=== PATIENT | male | born 1945 | race Two or more races ===

== ENCOUNTER 2016-12-13 13:15 | Inpatient (IN) | payer MEDICARE ==
[~2016-12-13] VITALS: Ht 175.3 cm; Wt 89.6 kg
[2016-12-13 15:05] LABS: INR 0.9 (0.8-1.1); PROTHROMBIN TIME PATIENT 11.8 SEC (11.7-14.0)
[2016-12-13 15:10] LABS: CALCIUM 8.9 mg/dL (8.5-10.1); GFR 74.1; POTASSIUM 3.5 mmol/L (3.5-5.1)
[2016-12-13] MEDS ORDERED: IOHEXOL 300 MG/ML 75 ML VIAL IV ONE (15:15)
[2016-12-13] MEDS ORDERED: CONTRAST GIVEN MC PRN (15:15)
[2016-12-13 15:23] LABS: BASO # 0.1 x10^3/uL (0.0-0.2); BASO % 1 % (0-3); EOS % 0 % (0-3); HEMATOCRIT 40.4 % (39.0-53.0); HEMOGLOBIN 14.1 g/dL (13.0-17.5); LYMPH # 4.2 x10^3/uL (1.0-4.8); LYMPH % 47 % (24-48); MEAN CORPUSCULAR HEMOGLOBIN 31 pg (25-35); MEAN CORPUSCULAR HGB CONC 35 g/dL (31-37); MEAN CORPUSCULAR VOLUME 90 fL (79-100); MONO % 11 % (0-9); NEUT % 40 % (31-73); PLATELET COUNT 251 x10^3/uL (140-400); RED CELL DISTRIBUTION WIDTH 16.7 % (11.5-14.5); WHITE BLOOD COUNT 8.9 x10^3/uL (4.0-11.0)
[2016-12-13 15:25] LABS: ALBUMIN 2.8 g/dL (3.4-5.0); DIRECT BILIRUBIN 14.5 mg/dL (0.0-0.2); TOTAL BILIRUBIN 21.1 mg/dL (0.2-1.0); TOTAL PROTEIN 7.2 g/dL (6.4-8.2)
[2016-12-13 15:31] LABS: BILIRUBIN,URINE LARGE (NEG); GLUCOSE,URINE NEGATIVE (NEG); PROTEIN,URINE NEGATIVE (NEG-TRACE)
[2016-12-13 15:42] LABS: BACTERIA,URINE 0 /HPF (0-FEW); NITRITE,URINE NEGATIVE (NEG); RBC,URINE 0 /HPF (0-2); SQUAMOUS EPITHELIAL CELL,UR FEW /LPF; UROBILINOGEN,URINE 0.2 mg/dL (0.2 mg/dL); WBC,URINE OCC /HPF (0-4)
--- NOTE | 2016-12-13 16:12 | RAD ---
Indication painless Jason disc. Axial images through the abdomen and pelvis were obtained. Approximately 75 cc of Omnipaque 300 was administered intravenously. No prior CT imaging of the abdomen or pelvis is available. There is a 8 to 9 mm pulmonary nodule in the right lower lobe. The etiology is unclear. An acute finding at either lung base is not seen. There is a moderately large hiatus hernia. There is intrahepatic biliary ductal dilatation. There is a possible mass in the right lobe of the liver in the area of the clifford habitus. There is probable cholelithiasis. Mild gallbladder wall thickening is suspect. If gallbladder pathology is suspect ultrasound should be considered. No pancreatic abnormality is seen. There are, however, borderline retroperitoneal lymph nodes. A few lymph nodes are also seen in the mesentery herniated into the chest. The pancreas appears unremarkable. No adrenal anomalies are seen and the kidneys appear unremarkable. An acute finding in the abdomen is not seen. No acute finding is seen in the pelvis. IMPRESSION: Intrahepatic biliary ductal dilatation the etiology of which is uncertain. There is a possible hepatic mass in the area of the clifford hepatis. There is some borderline retroperitoneal adenopathy in the upper abdomen. 8 to 9 mm pulmonary nodule in the right lower lobe
[2016-12-13 16:50] LABS: PLT ESTIMATE ADEQUATE (ADEQUATE)
--- NOTE | 2016-12-13 17:31 | RAD ---
Right upper quadrant abdominal ultrasound, 12/13/2016: History: Painless jaundice The gallbladder is within normal limits in size. Its ordaz are markedly thickened. No definite gallstones are seen. There are dilated intrahepatic bile ducts, best seen in the right lobe of the liver. There is an irregular mass in the right lobe of the liver adjacent to the gallbladder fossa corresponding to an abnormality seen on the current CT study. This mass is predominantly hyperechoic and heterogeneous. It measures approximately 4 cm in greatest diameter. It is presumably the source of the biliary ductal dilatation. A portion of the common hepatic duct was visualized and it measures 7 mm. The pancreas was obscured by overlying bowel. The visualized portions of the right kidney are unremarkable. IMPRESSION: 1. Heterogeneous mass in the right lobe of the liver with associated intrahepatic bile duct dilatation. Malignancy such as cholangiocarcinoma, hepatoma or metastatic disease is suspected. 2. Heterogeneous gallbladder wall thickening which can be due to a variety of causes including cholecystitis, liver disease or hypoproteinemia.
--- NOTE | 2016-12-13 17:59 | PHYS DOC ---
Past Medical History Past Medical History: High Cholesterol, Other Additional Past Medical Histor: DEMENTIA,ULCERATIVE COLITIS Past Surgical History: Other Additional Past Surgical Histo: SHOULDER Alcohol Use: Sober Drug Use: None Adult General Chief Complaint Chief Complaint: DIARRHEA HPI HPI Patient is a 71 year old male who presents at request of PCP for hyperbilirubinemia. He and note one episode of loose stool per day for the past 3 days. They note 2 weeks of gradually worsening yellowing of the skin and eyes. He denies abdominal pain, nausea or vomiting, fever or chills, dysuria, hematuria, chest pain, dyspnea, night sweats, weight loss, abdominal swelling. Review of Systems Review of Systems Constitutional: Denies fever or chills [] Eyes: Denies change in visual acuity, redness, or eye pain [] HENT: Denies nasal congestion or sore throat [] Respiratory: Denies cough or shortness of breath [] Cardiovascular: No additional information not addressed in HPI [] GI: Denies abdominal pain, nausea, vomiting, bloody stools [] : Denies dysuria or hematuria [] Musculoskeletal: Denies back pain or joint pain [] Integument: Denies rash or skin lesions [] Neurologic: Denies headache, focal weakness or sensory changes [] Endocrine: Denies polyuria or polydipsia [] Current Medications Current Medications Current Medications Medications (Trade) Dose Ordered Sig/Pino Start Time Stop Time Status Last Admin Dose Admin Info (Do NOT chart on this entry -- for MONITORING) 1 each PRN DAILY PRN 12/13/16 15:15 12/15/16 15:14 Iohexol (Omnipaque 300 Mg/ml) 60 ml 1X ONCE 12/13/16 15:15 12/13/16 15:16 DC 12/13/16 15:35 75 ML Allergies Allergies Allergies Coded Allergies Type Severity Reaction Last Updated Verified No Known Drug Allergies 12/13/16 No Physical Exam Physical Exam Constitutional: Well developed, well nourished, no acute distress, non-toxic appearance. [] HENT: Normocephalic, atraumatic, bilateral external ears normal, oropharynx moist, no oral exudates, nose normal. [] Eyes: PERRLA, EOMI. Yellow Sclera [] Neck: Normal range of motion, supple. [] Cardiovascular:Heart rate regular rhythm [] Lungs & Thorax: Bilateral breath sounds clear to auscultation [] Abdomen: Bowel sounds normal, soft, no tenderness. [] Skin: Warm, dry, no erythema, no rash. Jaundiced [] Back: No tenderness, no CVA tenderness. [] Extremities: ROM intact, no edema. [] Neurologic: Alert and oriented X 3, normal motor function, normal sensory function, no focal deficits noted. [] Psychologic: Affect normal, judgement normal, mood normal. [] Current Patient Data Vital Signs Vital Signs Date Time Temp Pulse Resp B/P Pulse Ox O2 Delivery O2 Flow Rate FiO2 12/13/16 18:00 60 50 119/68 96 Room Air 12/13/16 13:45 98 98.0 Lab Values Laboratory Tests Test 12/13/16 14:30 12/13/16 14:40 12/13/16 15:05 Urine Collection Type Clean catch Urine Color Fanny Urine Clarity Clear Urine pH 6.0 Urine Specific [place] >=1.030 Urine Protein Negativemg/dL (NEG-TRACE) Urine Glucose (UA) Negativemg/dL (NEG) Urine Ketones (Stick) Negativemg/dL (NEG) Urine Blood Negative (NEG) Urine Nitrite Negative (NEG) Urine Bilirubin Large (NEG) Urine Urobilinogen Dipstick 0.2mg/dL (0.2 mg/dL) Urine Leukocyte Esterase Negative (NEG) Urine RBC 0/HPF (0-2) Urine WBC Occ/HPF (0-4) Urine Squamous Epithelial Cells Few/LPF Urine Bacteria 0/HPF (0-FEW) Urine Mucus Marked/LPF Prothrombin Time 11.8SEC (11.7-14.0) Prothrombin Time INR 0.9 (0.8-1.1) PTT 30SEC (24-38) Sodium Level 138mmol/L (136-145) Potassium Level 3.5mmol/L (3.5-5.1) Chloride Level 102mmol/L (98-107) Carbon Dioxide Level 24mmol/L (21-32) Anion Gap 12 (6-14) Blood Urea Nitrogen 18mg/dL (8-26) Creatinine 1.0mg/dL (0.7-1.3) Estimated GFR (Cockcroft-Gault) 74.1 Glucose Level 94mg/dL (70-99) Calcium Level 8.9mg/dL (8.5-10.1) Total Bilirubin 21.1mg/dL (0.2-1.0) H Direct Bilirubin 14.5mg/dL (0.0-0.2) H Aspartate Amino Transferase (AST) 66U/L (15-37) H Alanine Aminotransferase (ALT) 75U/L (16-63) H Alkaline Phosphatase 264U/L (46-116) H Total Protein 7.2g/dL (6.4-8.2) Albumin 2.8g/dL (3.4-5.0) L Lipase 269U/L (73-393) White Blood Count 8.9x10^3/uL (4.0-11.0) Red Blood Count 4.50x10^6/uL (4.30-5.70) Hemoglobin 14.1g/dL (13.0-17.5) Hematocrit 40.4% (39.0-53.0) Mean Corpuscular Volume 90fL (79-100) Mean Corpuscular Hemoglobin 31pg (25-35) Mean Corpuscular Hemoglobin Concent 35g/dL (31-37) Red Cell Distribution Width 16.7% (11.5-14.5) H Platelet Count 251x10^3/uL (140-400) Neutrophils (%) (Auto) 40% (31-73) Lymphocytes (%) (Auto) 47% (24-48) Monocytes (%) (Auto) 11% (0-9) H Eosinophils (%) (Auto) 0% (0-3) Basophils (%) (Auto) 1% (0-3) Neutrophils # (Auto) 3.6x10^3uL (1.8-7.7) Lymphocytes # (Auto) 4.2x10^3/uL (1.0-4.8) Monocytes # (Auto) 1.0x10^3/uL (0.0-1.1) Eosinophils # (Auto) 0.0x10^3/uL (0.0-0.7) Basophils # (Auto) 0.1x10^3/uL (0.0-0.2) Segmented Neutrophils % 65% (35-66) Lymphocytes % 23% (24-48) L Monocytes % 12% (0-10) H Platelet Estimate Adequate (ADEQUATE) Laboratory Tests 12/13/16 15:05 Laboratory Tests 12/13/16 14:40 Radiology/Procedures Radiology/Procedures CT abdomen and pelvis with IV contrast IMPRESSION: Intrahepatic biliary ductal dilatation the etiology of which is uncertain. There is a possible hepatic mass in the area of the clifford hepatis. There is some borderline retroperitoneal adenopathy in the upper abdomen. 8 to 9 mm pulmonary nodule in the right lower lobe DICTATED and SIGNED BY: MIHAI MOSER MD DATE: 12/13/16 1555 Ultrasound abdomen IMPRESSION: 1. Heterogeneous mass in the right lobe of the liver with associated intrahepatic bile duct dilatation. Malignancy such as cholangiocarcinoma, hepatoma or metastatic disease is suspected. 2. Heterogeneous gallbladder wall thickening which can be due to a variety of causes including cholecystitis, liver disease or hypoproteinemia. DICTATED and SIGNED BY: TESS MALIK MD DATE: 12/13/16 1721 Course & Med Decision Making Course & Med Decision Making Pertinent Labs and Imaging studies reviewed. (See chart for details) Imaging concerning for hepatobiliary cancer with metastasis. Bilirubin remains elevated. Discussed case with Dr. Lobo, cone machine feeder for Dr. Luciano, who recommends admission for GI evaluation. Discussed case with Dr. Pelaez, GI, who will see him. Dragon Disclaimer Dragon Disclaimer This electronic medical record was generated, in whole or in part, using a voice recognition dictation system. Departure Departure Impression: Primary Impression: Jaundice Additional Impression: Liver tumor Disposition: ADMITTED INPATIENT Condition: STABLE Referrals: AKUA LUCIANO (PCP) Problem Qualifiers Giulia KENNEDY MD Dec 13, 2016 17:59
[2016-12-13] MEDS ORDERED: ACETAMINOPHEN 325 MG TABLET. PO PRN (18:30)
[2016-12-13] MEDS ORDERED: ONDANSETRON PF 4 MG/2 ML VIAL. IV PRN (18:30)
[2016-12-13] MEDS ORDERED: FENTANYL PF 100 MCG/2 ML VIAL. IV PRN (18:30)
[2016-12-13] MEDS ORDERED: FENO48TA2 PO (20:35)
[2016-12-13] MEDS ORDERED: PROM5SYR2 PO (20:35)
[2016-12-13] MEDS ORDERED: MESA0.37 PO (20:35)
[2016-12-13] MEDS ORDERED: ASPI81TA2 PO (20:35)
[2016-12-13] MEDS ORDERED: OMEP20CA9 PO (20:35)
[2016-12-13] MEDS ORDERED: AZIT250T6 PO (20:35)
[2016-12-13 20:54] VITALS: BP 131/78
[2016-12-13 23:36] VITALS: BP 120/64
[2016-12-14 03:09] VITALS: BP 134/71
[2016-12-14] MEDS ORDERED: PROMETH/CODEINE 6.25/10MG 5 ML SYRUP. PO PRN (06:00)
--- NOTE | 2016-12-14 06:13 | PDOC1 ---
AGUILAREricJUAN PABLO MARINELLI DRAIN TILE PRESS OPERATOR 12/14/16 0613: HISTORY AND PHYSICAL Chief Complaint Chief Complaint This 71 year old [place] male has been admitted with a chief complaint of elevated liver enzymes. He was seen by Dr. Hernandez on 12/12/16 and treatment initiated for acute bronchitis with productive cough yellow sputum for 2 weeks. Labs were drawn and he was noted to have elevated LFTs: AP 229, ALT 77, ADST71, T Bili 23.3. He was instructed to proceed to the ED. A CT of the abdomen/pelvis with IV/oral contrast revealed: 8-9mm pulmonary nodule RLL, large HH, and possible mass in the right lobe of the liver. An US of the GB/liver: intrahepatic duct dilation with +mass right lobe of the liver. He is admitted for further evaluation and treatment. Problem List Problems Medical Problems: (1) Jaundice Status: Acute (2) Liver tumor Status: Acute Past Medical History Cardiovascular: HTN CENTRAL NERVOUS SYSTEM: Other (early Alzheimer ) GI: GERD, Other (h/o ulcerative colitis, irritable bowel disease) Endocrine: Diabetes (no insulin ), Other (obesitym metabolic syndrome X ) Past Surgical History PSH None Past Family History PFH Father - liver problems Past Social History PSH , no h/o tobacco, ETOH, or illicit drugs Review of Symptoms Review of Symptoms A 14 point ROS was completed with the following noted as positive: Other systems reviewed and negative. Medications Medications reviewed and reconciled. Allergy Allergies Coded Allergies Type Severity Reaction Last Updated Verified No Known Drug Allergies 12/13/16 No Physical Exam Physical Exam General appearance - alert,well appearing, and in no distress Mental Status - alert, oriented to person, place, and time, affect appropriate to mood Head - normal Chest - clear to auscultation, no wheezes, rales or rhonchi, symmetric air entry Heart - S1 and S2 normal Abdomen - soft, nontender, nondistended, no masses or organomegaly Neurological - no acute focal neurological deficits Musculoskeletal - no muscular tenderness noted Extremities - no pedal edema Skin - warm and dry VTE Prophylaxis Ordered VTE Prophylaxis Devices: Yes VTE Pharmacological Prophylaxi: No Assessment Labs Laboratory Tests Test 12/13/16 14:30 12/13/16 14:40 12/13/16 15:05 Urine Collection Type Clean catch Urine Color Fanny Urine Clarity Clear Urine pH 6.0 Urine Specific [place] >=1.030 Urine Protein Negativemg/dL (NEG-TRACE) Urine Glucose (UA) Negativemg/dL (NEG) Urine Ketones (Stick) Negativemg/dL (NEG) Urine Blood Negative (NEG) Urine Nitrite Negative (NEG) Urine Bilirubin Large (NEG) Urine Urobilinogen Dipstick 0.2mg/dL (0.2 mg/dL) Urine Leukocyte Esterase Negative (NEG) Urine RBC 0/HPF (0-2) Urine WBC Occ/HPF (0-4) Urine Squamous Epithelial Cells Few/LPF Urine Bacteria 0/HPF (0-FEW) Urine Mucus Marked/LPF Prothrombin Time 11.8SEC (11.7-14.0) Prothromb Time International Ratio 0.9 (0.8-1.1) Activated Partial Thromboplast Time 30SEC (24-38) Sodium Level 138mmol/L (136-145) Potassium Level 3.5mmol/L (3.5-5.1) Chloride Level 102mmol/L (98-107) Carbon Dioxide Level 24mmol/L (21-32) Anion Gap 12 (6-14) Blood Urea Nitrogen 18mg/dL (8-26) Creatinine 1.0mg/dL (0.7-1.3) Estimated GFR (Cockcroft-Gault) 74.1 Glucose Level 94mg/dL (70-99) Calcium Level 8.9mg/dL (8.5-10.1) Total Bilirubin 21.1mg/dL (0.2-1.0) Direct Bilirubin 14.5mg/dL (0.0-0.2) Aspartate Amino Transf (AST/SGOT) 66U/L (15-37) Alanine Aminotransferase (ALT/SGPT) 75U/L (16-63) Alkaline Phosphatase 264U/L (46-116) Total Protein 7.2g/dL (6.4-8.2) Albumin 2.8g/dL (3.4-5.0) Lipase 269U/L (73-393) White Blood Count 8.9x10^3/uL (4.0-11.0) Red Blood Count 4.50x10^6/uL (4.30-5.70) Hemoglobin 14.1g/dL (13.0-17.5) Hematocrit 40.4% (39.0-53.0) Mean Corpuscular Volume 90fL (79-100) Mean Corpuscular Hemoglobin 31pg (25-35) Mean Corpuscular Hemoglobin Concent 35g/dL (31-37) Red Cell Distribution Width 16.7% (11.5-14.5) Platelet Count 251x10^3/uL (140-400) Neutrophils (%) (Auto) 40% (31-73) Lymphocytes (%) (Auto) 47% (24-48) Monocytes (%) (Auto) 11% (0-9) Eosinophils (%) (Auto) 0% (0-3) Basophils (%) (Auto) 1% (0-3) Neutrophils # (Auto) 3.6x10^3uL (1.8-7.7) Lymphocytes # (Auto) 4.2x10^3/uL (1.0-4.8) Monocytes # (Auto) 1.0x10^3/uL (0.0-1.1) Eosinophils # (Auto) 0.0x10^3/uL (0.0-0.7) Basophils # (Auto) 0.1x10^3/uL (0.0-0.2) Segmented Neutrophils % 65% (35-66) Lymphocytes % 23% (24-48) Monocytes % 12% (0-10) Platelet Estimate Adequate (ADEQUATE) Laboratory Tests Test 12/13/16 14:30 12/13/16 14:40 12/13/16 15:05 Urine Collection Type Clean catch Urine Color Fanny Urine Clarity Clear Urine pH 6.0 Urine Specific [place] >=1.030 Urine Protein Negativemg/dL (NEG-TRACE) Urine Glucose (UA) Negativemg/dL (NEG) Urine Ketones (Stick) Negativemg/dL (NEG) Urine Blood Negative (NEG) Urine Nitrite Negative (NEG) Urine Bilirubin Large (NEG) Urine Urobilinogen Dipstick 0.2mg/dL (0.2 mg/dL) Urine Leukocyte Esterase Negative (NEG) Urine RBC 0/HPF (0-2) Urine WBC Occ/HPF (0-4) Urine Squamous Epithelial Cells Few/LPF Urine Bacteria 0/HPF (0-FEW) Urine Mucus Marked/LPF Prothrombin Time 11.8SEC (11.7-14.0) Prothromb Time International Ratio 0.9 (0.8-1.1) Activated Partial Thromboplast Time 30SEC (24-38) Sodium Level 138mmol/L (136-145) Potassium Level 3.5mmol/L (3.5-5.1) Chloride Level 102mmol/L (98-107) Carbon Dioxide Level 24mmol/L (21-32) Anion Gap 12 (6-14) Blood Urea Nitrogen 18mg/dL (8-26) Creatinine 1.0mg/dL (0.7-1.3) Estimated GFR (Cockcroft-Gault) 74.1 Glucose Level 94mg/dL (70-99) Calcium Level 8.9mg/dL (8.5-10.1) Total Bilirubin 21.1mg/dL (0.2-1.0) Direct Bilirubin 14.5mg/dL (0.0-0.2) Aspartate Amino Transf (AST/SGOT) 66U/L (15-37) Alanine Aminotransferase (ALT/SGPT) 75U/L (16-63) Alkaline Phosphatase 264U/L (46-116) Total Protein 7.2g/dL (6.4-8.2) Albumin 2.8g/dL (3.4-5.0) Lipase 269U/L (73-393) White Blood Count 8.9x10^3/uL (4.0-11.0) Red Blood Count 4.50x10^6/uL (4.30-5.70) Hemoglobin 14.1g/dL (13.0-17.5) Hematocrit 40.4% (39.0-53.0) Mean Corpuscular Volume 90fL (79-100) Mean Corpuscular Hemoglobin 31pg (25-35) Mean Corpuscular Hemoglobin Concent 35g/dL (31-37) Red Cell Distribution Width 16.7% (11.5-14.5) Platelet Count 251x10^3/uL (140-400) Neutrophils (%) (Auto) 40% (31-73) Lymphocytes (%) (Auto) 47% (24-48) Monocytes (%) (Auto) 11% (0-9) Eosinophils (%) (Auto) 0% (0-3) Basophils (%) (Auto) 1% (0-3) Neutrophils # (Auto) 3.6x10^3uL (1.8-7.7) Lymphocytes # (Auto) 4.2x10^3/uL (1.0-4.8) Monocytes # (Auto) 1.0x10^3/uL (0.0-1.1) Eosinophils # (Auto) 0.0x10^3/uL (0.0-0.7) Basophils # (Auto) 0.1x10^3/uL (0.0-0.2) Segmented Neutrophils % 65% (35-66) Lymphocytes % 23% (24-48) Monocytes % 12% (0-10) Platelet Estimate Adequate (ADEQUATE) Plan Plan 1. mass R lobe liver with intrahepatic duct dilation 2. R lower lobe pulmonary nodule 3. HTN 4. early Alzheimer 5. h/o irritable bowel disease 6. DM II non insulin controlled 7. metabolic syndrome X 8. h/o ulcerative colitis 9. moderate chronic PCL malnutrition 10. HH large 11. CKD III PLAN: mass R lobe liver GI consult LFTs 12/05/15 WNL AP 97, ALT 39, AST 36 T bili 0.9 12/12/16 AP 229 12/13 264 ALT 77 75 AST 71 66 T. Bili 23.3 21.1 D. Bili 14.4 Acute bronchitis 12/12 WBC 14.3 duoneb nodule RLL--consult pulmonary Stop Zithromax Start Rocephin 1gm IV daily for additional 3 days (has taken 2 days Zithromax) CKD III 12/04 BUN/Cr 1.0/0.9 12/12 BUN/Cr 17/1.36 Admit BUN 18 Cr 1.0 DVT/GI prophylaxis SCD/Cale PPI For more details regarding further plans, please refer to the orders. SARITA MONTEJO MD 12/14/16 0922: HISTORY AND PHYSICAL Plan Plan The patient was seen and examined by me. Chart reviewed and plan of care formulated. Discussed with, reviewed and agree with TAX ACCOUNTING MANAGER's notes, plan of care and orders with modifications as necessary. For more details regarding further plans, please refer to the orders. Condition, treatment, options were extensively discussed with the patient and family. JUAN PABLO FALK APRN Dec 14, 2016 06:13 SARITA MONTEJO MD Dec 14, 2016 09:22
[2016-12-14] MEDS ORDERED: ACETAMINOPHEN 325 MG TABLET. PO PRN (06:15)
[2016-12-14] MEDS ORDERED: FENTANYL PF 100 MCG/2 ML VIAL. IV PRN (06:15)
[2016-12-14 07:00] VITALS: BP 115/73
[2016-12-14] MEDS: CEFTRIAXONE SODIUM 1 GM in IV NORMAL SALINE 50ML 50 ML IV SCH (07:26)
[2016-12-14] MEDS: MESALAMINE 1.2 GM TABLET.DR PO SCH (08:17)
[2016-12-14] MEDS: ASPIRIN 81 MG TAB.CHEW PO SCH (08:18)
[2016-12-14] MEDS: PANTOPRAZOLE 40 MG TABLET. PO SCH (08:18)
[2016-12-14] MEDS: IPRATRPIUM/ALBUTEROL 0.5/2.5MG 3 ML NEBU. NEB SCH ×4 (08:50→20:28)
[2016-12-14 09:27] LABS: BASO % 0 % (0-3); EOS % 1 % (0-3); WHITE BLOOD COUNT 9.6 x10^3/uL (4.0-11.0)
--- NOTE | 2016-12-14 09:59 | RAD ---
Indication pulmonary nodule. Productive cough. Axial noncontrast images of the chest were obtained. No prior imaging of the chest is available. Note is made of the CT examination of the abdomen and pelvis one earlier. Imaging through the upper abdomen is unchanged relative to the CT examination one day earlier. Known hiatus hernia is reproduced. Known 9 mm pulmonary nodule in the right lower lobe, image 182 series 3, is reproduced. An additional nodule is seen in the right lower lobe, also measuring approximately 8 to 9 mm, image 143. The etiology for these nodules is unclear and with include both benign and malignant disease. Additional pulmonary nodule in either lung is not seen. An acute parenchymal infiltrate is not seen. There is some coronary artery calcification. The thoracic aorta appears unremarkable. Significant hilar or mediastinal adenopathy is not seen. A few mediastinal lymph nodes are seen which are likely incidental IMPRESSION: No acute finding apparent in the chest. 2 soft tissue pulmonary nodules in the right lower lobe each measuring approximately 8 to 9 mm. Both benign and malignant disease could account for the findings. Infectious etiology is not entirely excluded but is felt least likely PQRS Compliance Statement: One or more of the following individualized dose reduction techniques were utilized for this examination: 1. Automated exposure control 2. Adjustment of the mA and/or kV according to patient size 3. Use of iterative reconstruction technique
[2016-12-14 10:01] LABS: ALBUMIN 2.5 g/dL (3.4-5.0); ALBUMIN/GLOBULIN RATIO 0.6 (1.0-1.7); CREATININE 0.8 mg/dL (0.7-1.3); GFR 95.8; POTASSIUM 3.6 mmol/L (3.5-5.1); TOTAL BILIRUBIN 21.5 mg/dL (0.2-1.0); TOTAL PROTEIN 6.9 g/dL (6.4-8.2)
[2016-12-14 10:34] LABS: HEMOGLOBIN 14.1 g/dL (13.0-17.5); MEAN CORPUSCULAR HEMOGLOBIN 32 pg (25-35); MEAN CORPUSCULAR HGB CONC 35 g/dL (31-37); MEAN CORPUSCULAR VOLUME 90 fL (79-100); PLATELET COUNT 249 x10^3/uL (140-400); RED BLOOD COUNT 4.47 x10^6/uL (4.30-5.70); RED CELL DISTRIBUTION WIDTH 16.6 % (11.5-14.5)
[2016-12-14 10:35] LABS: LYMPH # 4.9 x10^3/uL (1.0-4.8); LYMPH % 51 % (24-48); MONO % 14 % (0-9); NEUT % 34 % (31-73)
--- NOTE | 2016-12-14 10:59 | PDOC ---
Provider Note Provider Note [id number] lung nodule liver mass pet pfts BERNABE LILLY MD Dec 14, 2016 10:59
[2016-12-14 11:00] VITALS: BP 126/74
[2016-12-14 11:04] LABS: PLT ESTIMATE ADEQUATE (ADEQUATE)
--- NOTE | 2016-12-14 11:49 | CONS ---
DATE OF CONSULTATION: 12/14/2016 I was asked to see this 71-year-old gentleman for abnormal CT of the chest. HISTORY OF PRESENT ILLNESS: A 98-qusn-eiup smoking, stopped smoking 5 or 6 years ago. He is a very poor historian. He does not know why he is here. Per Emergency Room note, the patient was sent to the Emergency Room by primary physician for hyperbilirubinemia. He said he has had some abdominal pain. He denies shortness of breath, cough or sputum production. ALLERGIES: No known drug allergies. MEDICATIONS: Currently, he is on aspirin, albuterol-Atrovent nebulizer and Rocephin. FAMILY HISTORY: There is no history of cancer. PAST MEDICAL HISTORY: Hypercholesterolemia, dementia and ulcerative colitis. REVIEW OF SYSTEMS: As mentioned as above, other systems otherwise negative. PHYSICAL EXAMINATION: GENERAL: A well-developed gentleman. VITAL SIGNS: His O2 saturation is 97%, respiratory rate 18, heart rate 86, blood pressure 115/73, temperature 98.2. HEENT: Normocephalic, atraumatic. Pupils are equal, round and reactive to light. Throat is clear. Nose is clear. NECK: There is no JVD, lymphadenopathy or thyromegaly. CARDIOVASCULAR: Regular rate and rhythm. PMI is not displaced. CHEST: Inspection is normal. LUNGS: Clear to auscultation. There is no wheezing. ABDOMEN: Soft. There is some tenderness in right upper quadrant. EXTREMITIES: There is no lower extremity edema. LYMPHATICS: There is no lymphadenopathy. SKIN: Jaundice. NEUROLOGIC: Alert. LABORATORY DATA: I reviewed the following lab data is a CT of the chest did show to right lower lobe 9 mm nodule. Ultrasound of the abdomen did show heterogeneous mass in the right lower lobe liver, measuring 4 cm with intrahepatic bile duct dilatation, gallbladder thickening. Sodium 138, potassium 3.6, chloride 104, CO2 of 23. Glucose 133, BUN 12, creatinine 0.8 with a bilirubin 21.5, AST 66, ALT 70, alkaline phosphatase 225. IMPRESSION: 1. 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 2. Right lower lobe pulmonary nodules. I suspect these are metastatic disease, other differential diagnosis; benign tumor versus primary lung cancer versus others. 3. Hyperbilirubinemia secondary to hepatic mass. 4. Ex-smoker. 5. Dementia. 6. Hypercholesterolemia. PLAN: 1. Titrate FiO2 to keep O2 saturation 92%. 2. I do recommend PET scan. 3. I agree with GI consultation. 4. I will follow along with you. 5. i do recommend Pulmonary function test. 6. The findings and recommendations were discussed with the patient and RN. Thank you very much for allowing me to participate in care of this very nice gentleman. BERNABE LILLY M.D. DR: MICHAEL/francois JOB#: [id number] / [id number] CAROLANN
[2016-12-14 15:00] VITALS: BP 120/70
[2016-12-14] MEDS: PROMETH/CODEINE 6.25/10MG 5 ML SYRUP. PO SCH ×2 (15:27→19:56)
[2016-12-14 19:00] VITALS: BP 110/64
[2016-12-14 23:00] VITALS: BP 117/68
[2016-12-15 03:00] VITALS: BP 138/82
[2016-12-15] MEDS: CEFTRIAXONE SODIUM 1 GM in IV NORMAL SALINE 50ML 50 ML IV SCH (06:08)
[2016-12-15 06:14] LABS: BASO # 0.2 x10^3/uL (0.0-0.2); BASO % 2 % (0-3); EOS % 1 % (0-3); HEMATOCRIT 38.5 % (39.0-53.0); HEMOGLOBIN 13.4 g/dL (13.0-17.5); LYMPH # 5.3 x10^3/uL (1.0-4.8); LYMPH % 51 % (24-48); MEAN CORPUSCULAR HEMOGLOBIN 31 pg (25-35); MEAN CORPUSCULAR HGB CONC 35 g/dL (31-37); MEAN CORPUSCULAR VOLUME 90 fL (79-100); MONO % 9 % (0-9); NEUT % 38 % (31-73); PLATELET COUNT 259 x10^3/uL (140-400); RED BLOOD COUNT 4.27 x10^6/uL (4.30-5.70); RED CELL DISTRIBUTION WIDTH 17.1 % (11.5-14.5); WHITE BLOOD COUNT 10.4 x10^3/uL (4.0-11.0)
[2016-12-15 06:19] LABS: ALBUMIN 2.6 g/dL (3.4-5.0); ALBUMIN/GLOBULIN RATIO 0.6 (1.0-1.7); CREATININE 0.9 mg/dL (0.7-1.3); GFR 83.7; MAGNESIUM 1.9 mg/dL (1.8-2.4); POTASSIUM 3.5 mmol/L (3.5-5.1); TOTAL BILIRUBIN 21.9 mg/dL (0.2-1.0); TOTAL PROTEIN 6.8 g/dL (6.4-8.2)
[2016-12-15 07:00] VITALS: BP 131/84
[2016-12-15] MEDS: IPRATRPIUM/ALBUTEROL 0.5/2.5MG 3 ML NEBU. NEB SCH ×4 (07:16→19:26)
[2016-12-15] MEDS: PANTOPRAZOLE 40 MG TABLET. PO SCH (07:30)
[2016-12-15 08:12] LABS: % BASOS 1 % (0-3); % EOS 2 % (0-5)
[2016-12-15 08:13] LABS: ANISOCYTOSIS PRESENT; PLT ESTIMATE ADEQUATE (ADEQUATE)
[2016-12-15] MEDS ORDERED: POTASSIUM CHLORIDE 20 MEQ TABLET.ER. PO ONE ×2 (08:45→15:30)
[2016-12-15] MEDS: PROMETH/CODEINE 6.25/10MG 5 ML SYRUP. PO SCH ×2 (09:00→15:25)
--- NOTE | 2016-12-15 09:30 | CONS ---
DATE OF CONSULTATION: 12/14/2016 DICTATING FOR: Dr. Hardeep Burris. REQUESTING PHYSICIAN: Dr. Chilo Lobo. PRIMARY CARE PHYSICIAN: Dr. Luciano. REASON FOR CONSULTATION: Liver mass and jaundice. HISTORY OF PRESENT ILLNESS: This is a 71-year-old gentleman who was admitted to [facility] on 12/13/2016. He was seen in the office by Dr. Luciano on 12/12/2016 for treatment of bronchitis with productive cough with yellow sputum. He had labs drawn that showed elevated liver function test. They called him and instructed him to come to the Emergency Room. He reports that he has been having some loose yellow bowel movements and occasional right upper quadrant abdominal pain. Upon admission to the Emergency Room, he was found to have elevated liver function test. His bilirubin was noted to be 21.1 with a direct of 14.5. AST is elevated at 66 with an elevated ALT of 75 and an elevated alk phos of 264. His coags were within normal limits. He has a history of ulcerative colitis and reports that he gets colonoscopies every [address] Rodriguez Lobo. He denies any abnormalities on colonoscopy. He does admit to some loose bowel movements that have been yellow. PAST MEDICAL HISTORY: Significant for, 1. Hypertension. 2. Dementia. 3. GERD. 4. Ulcerative colitis with colonoscopies by Dr. Rodriguez Lobo apparently every 2 years. 5. Question of IBS. 6. Diabetes. FAMILY MEDICAL HISTORY: He denies ulcerative colitis or colon cancer. There is a question of liver problems in his father. He states that his family does not discuss their medical conditions. SOCIAL HISTORY: He denies tobacco, alcohol, or IV drug abuse. ALLERGIES: No known drug allergies. MEDICATIONS: He is currently on; 1. Lialda. 2. Aspirin. 3. DuoNeb. 4. Protonix. 5. Tylenol. 6. Fentanyl. 7. Zofran. REVIEW OF SYSTEMS: A 13-point review of systems was done. It is positive as per HPI and otherwise negative. PHYSICAL EXAMINATION: VITAL SIGNS: His temperature is 98.2, blood pressure 115/73, heart rate 86. GENERAL: He is a well-developed, well-nourished gentleman in no apparent distress. HEENT: He does have scleral icterus. CARDIOVASCULAR: S1, S2. LUNGS: Clear. ABDOMEN: Has normoactive bowel sounds, soft, nontender, nondistended. EXTREMITIES: No edema. SKIN: Does demonstrate jaundice. LABORATORY DATA: White blood cell count of 9.6 with a hemoglobin of 14.1, MCV of 90, platelets are at 249. Chemistries show elevated liver function tests with a total bilirubin of 21.5, AST 56, ALT 70, alkaline phosphatase 225. Coags are normal. IMAGING STUDIES: 1. CT of the chest shows two soft tissue pulmonary nodules in the right lower lobe, each measuring 8-9 mm, both benign and malignant ____. 2. Ultrasound of the abdomen showed heterogeneous mass in the right lobe of the liver with associated intrahepatic bile duct dilatation. Cholangiocarcinoma is in the differential. There is also heterogeneous gallbladder wall thickening. CT of the abdomen and pelvis shows intrahepatic biliary ductal dilatation with a possible hepatic mass in the area of the clifford hepatis. ASSESSMENT AND PLAN: 1. Liver mass: There is concern for liver primary versus cholangio. In the setting of ulcerative colitis, malignancy with a question of ____ cholangitis remain in the differential. At this time, I will go ahead and pursue with an ____ MRCP for further evaluation. I will go ahead and check tumor markers as well including a CA-19-9 and CEA. He has had colonoscopies in the past that have been unrevealing. 2. Jaundice: Likely secondary to the liver mass. We will evaluate further with imaging and laboratory values. Pending those results favor either an ERCP versus an IR-guided biopsy. 3. Elevated liver function tests. Again secondary to the etiology of #1 and #2. 4. Diarrhea: He reports some loose bowel movements that had been yellow in color. I will go ahead and check stool studies. He does have a history of ulcerative colitis. 5. Ulcerative colitis. This has been reportedly managed by Dr. Rodriguez Lobo. He has been on Lialda. He states he has had colonoscopies done every 2 years. Thank you for allowing Dr. Burris, Dr. Rodriguez Lobo, and I to participate in the care of this patient. KHADIJAH CROWE MD DR: GRACE/francois JOB#: [id number] / [id number] ecc AKUA LUCIANO PRATIP MD PATEL, PRAVIN MD THOMPSON, MICHAEL MD
--- NOTE | 2016-12-15 10:25 | PDOC ---
IM PROGRESS NOTES- Subjective Subjective No dyspnea,abdominal pain.cough is improving. Objective Vitals Vital Signs Date Time Temp Pulse Resp B/P Pulse Ox O2 Delivery O2 Flow Rate FiO2 12/15/16 07:20 Room Air 12/15/16 07:17 96 12/15/16 07:00 98.1 67 16 131/84 98.1 Input & Output Intake and Output 12/15/16 07:00 Intake Total 180 ml Balance 180 ml Intake Oral 180 ml # Voids 6 Physical Exam Physical Exam General appearance - alert,well appearing, and in no distress and oriented to person, place, and time Mental Status - alert, oriented to person, place, and time, affect appropriate to mood Head - normal Chest - clear to auscultation, no wheezes, rales or rhonchi, symmetric air entry Heart - S1 and S2 normal Abdomen - soft, nontender, nondistended, no masses or organomegaly Neurological - alert and oriented Musculoskeletal - no muscular tenderness noted Extremities - no pedal edema Skin - warm and dry Labs Laboratory Tests Test 12/13/16 14:30 12/13/16 14:40 12/13/16 15:05 12/14/16 09:10 Urine Collection Type Clean catch Urine Color Fanny Urine Clarity Clear Urine pH 6.0 Urine Specific [place] >=1.030 Urine Protein Negativemg/dL (NEG-TRACE) Urine Glucose (UA) Negativemg/dL (NEG) Urine Ketones (Stick) Negativemg/dL (NEG) Urine Blood Negative (NEG) Urine Nitrite Negative (NEG) Urine Bilirubin Large (NEG) Urine Urobilinogen Dipstick 0.2mg/dL (0.2 mg/dL) Urine Leukocyte Esterase Negative (NEG) Urine RBC 0/HPF (0-2) Urine WBC Occ/HPF (0-4) Urine Squamous Epithelial Cells Few/LPF Urine Bacteria 0/HPF (0-FEW) Urine Mucus Marked/LPF Prothrombin Time 11.8SEC (11.7-14.0) Prothromb Time International Ratio 0.9 (0.8-1.1) Activated Partial Thromboplast Time 30SEC (24-38) Sodium Level 138mmol/L (136-145) 138mmol/L (136-145) Potassium Level 3.5mmol/L (3.5-5.1) 3.6mmol/L (3.5-5.1) Chloride Level 102mmol/L (98-107) 104mmol/L (98-107) Carbon Dioxide Level 24mmol/L (21-32) 23mmol/L (21-32) Anion Gap 12 (6-14) 11 (6-14) Blood Urea Nitrogen 18mg/dL (8-26) 12mg/dL (8-26) Creatinine 1.0mg/dL (0.7-1.3) 0.8mg/dL (0.7-1.3) Estimated GFR (Cockcroft-Gault) 74.1 95.8 Glucose Level 94mg/dL (70-99) 133mg/dL (70-99) Calcium Level 8.9mg/dL (8.5-10.1) 9.0mg/dL (8.5-10.1) Total Bilirubin 21.1mg/dL (0.2-1.0) 21.5mg/dL (0.2-1.0) Direct Bilirubin 14.5mg/dL (0.0-0.2) Aspartate Amino Transf (AST/SGOT) 66U/L (15-37) 66U/L (15-37) Alanine Aminotransferase (ALT/SGPT) 75U/L (16-63) 70U/L (16-63) Alkaline Phosphatase 264U/L (46-116) 225U/L (46-116) Total Protein 7.2g/dL (6.4-8.2) 6.9g/dL (6.4-8.2) Albumin 2.8g/dL (3.4-5.0) 2.5g/dL (3.4-5.0) Lipase 269U/L (73-393) White Blood Count 8.9x10^3/uL (4.0-11.0) 9.6x10^3/uL (4.0-11.0) Red Blood Count 4.50x10^6/uL (4.30-5.70) 4.47x10^6/uL (4.30-5.70) Hemoglobin 14.1g/dL (13.0-17.5) 14.1g/dL (13.0-17.5) Hematocrit 40.4% (39.0-53.0) 40.0% (39.0-53.0) Mean Corpuscular Volume 90fL (79-100) 90fL (79-100) Mean Corpuscular Hemoglobin 31pg (25-35) 32pg (25-35) Mean Corpuscular Hemoglobin Concent 35g/dL (31-37) 35g/dL (31-37) Red Cell Distribution Width 16.7% (11.5-14.5) 16.6% (11.5-14.5) Platelet Count 251x10^3/uL (140-400) 249x10^3/uL (140-400) Neutrophils (%) (Auto) 40% (31-73) 34% (31-73) Lymphocytes (%) (Auto) 47% (24-48) 51% (24-48) Monocytes (%) (Auto) 11% (0-9) 14% (0-9) Eosinophils (%) (Auto) 0% (0-3) 1% (0-3) Basophils (%) (Auto) 1% (0-3) 0% (0-3) Neutrophils # (Auto) 3.6x10^3uL (1.8-7.7) 3.2x10^3uL (1.8-7.7) Lymphocytes # (Auto) 4.2x10^3/uL (1.0-4.8) 4.9x10^3/uL (1.0-4.8) Monocytes # (Auto) 1.0x10^3/uL (0.0-1.1) 1.4x10^3/uL (0.0-1.1) Eosinophils # (Auto) 0.0x10^3/uL (0.0-0.7) 0.1x10^3/uL (0.0-0.7) Basophils # (Auto) 0.1x10^3/uL (0.0-0.2) 0.0x10^3/uL (0.0-0.2) Segmented Neutrophils % 65% (35-66) Lymphocytes % 23% (24-48) Monocytes % 12% (0-10) Platelet Estimate Adequate (ADEQUATE) Adequate (ADEQUATE) Large Platelets Present BUN/Creatinine Ratio 15 (6-20) Albumin/Globulin Ratio 0.6 (1.0-1.7) Test 12/15/16 05:10 White Blood Count 10.4x10^3/uL (4.0-11.0) Red Blood Count 4.27x10^6/uL (4.30-5.70) Hemoglobin 13.4g/dL (13.0-17.5) Hematocrit 38.5% (39.0-53.0) Mean Corpuscular Volume 90fL (79-100) Mean Corpuscular Hemoglobin 31pg (25-35) Mean Corpuscular Hemoglobin Concent 35g/dL (31-37) Red Cell Distribution Width 17.1% (11.5-14.5) Platelet Count 259x10^3/uL (140-400) Neutrophils (%) (Auto) 38% (31-73) Lymphocytes (%) (Auto) 51% (24-48) Monocytes (%) (Auto) 9% (0-9) Eosinophils (%) (Auto) 1% (0-3) Basophils (%) (Auto) 2% (0-3) Neutrophils # (Auto) 3.9x10^3uL (1.8-7.7) Lymphocytes # (Auto) 5.3x10^3/uL (1.0-4.8) Monocytes # (Auto) 0.9x10^3/uL (0.0-1.1) Eosinophils # (Auto) 0.1x10^3/uL (0.0-0.7) Basophils # (Auto) 0.2x10^3/uL (0.0-0.2) Segmented Neutrophils % 75% (35-66) Band Neutrophils % 2% (0-9) Lymphocytes % 15% (24-48) Monocytes % 5% (0-10) Eosinophils % 2% (0-5) Basophils % 1% (0-3) Platelet Estimate Adequate (ADEQUATE) Anisocytosis Present Sodium Level 136mmol/L (136-145) Potassium Level 3.5mmol/L (3.5-5.1) Chloride Level 101mmol/L (98-107) Carbon Dioxide Level 24mmol/L (21-32) Anion Gap 11 (6-14) Blood Urea Nitrogen 14mg/dL (8-26) Creatinine 0.9mg/dL (0.7-1.3) Estimated GFR (Cockcroft-Gault) 83.7 BUN/Creatinine Ratio 16 (6-20) Glucose Level 95mg/dL (70-99) Calcium Level 9.0mg/dL (8.5-10.1) Magnesium Level 1.9mg/dL (1.8-2.4) Total Bilirubin 21.9mg/dL (0.2-1.0) Direct Bilirubin 15.0mg/dL (0.0-0.2) Aspartate Amino Transf (AST/SGOT) 59U/L (15-37) Alanine Aminotransferase (ALT/SGPT) 66U/L (16-63) Alkaline Phosphatase 213U/L (46-116) Total Protein 6.8g/dL (6.4-8.2) Albumin 2.6g/dL (3.4-5.0) Albumin/Globulin Ratio 0.6 (1.0-1.7) Laboratory Tests Test 12/15/16 05:10 White Blood Count 10.4x10^3/uL (4.0-11.0) Red Blood Count 4.27x10^6/uL (4.30-5.70) Hemoglobin 13.4g/dL (13.0-17.5) Hematocrit 38.5% (39.0-53.0) Mean Corpuscular Volume 90fL (79-100) Mean Corpuscular Hemoglobin 31pg (25-35) Mean Corpuscular Hemoglobin Concent 35g/dL (31-37) Red Cell Distribution Width 17.1% (11.5-14.5) Platelet Count 259x10^3/uL (140-400) Neutrophils (%) (Auto) 38% (31-73) Lymphocytes (%) (Auto) 51% (24-48) Monocytes (%) (Auto) 9% (0-9) Eosinophils (%) (Auto) 1% (0-3) Basophils (%) (Auto) 2% (0-3) Neutrophils # (Auto) 3.9x10^3uL (1.8-7.7) Lymphocytes # (Auto) 5.3x10^3/uL (1.0-4.8) Monocytes # (Auto) 0.9x10^3/uL (0.0-1.1) Eosinophils # (Auto) 0.1x10^3/uL (0.0-0.7) Basophils # (Auto) 0.2x10^3/uL (0.0-0.2) Segmented Neutrophils % 75% (35-66) Band Neutrophils % 2% (0-9) Lymphocytes % 15% (24-48) Monocytes % 5% (0-10) Eosinophils % 2% (0-5) Basophils % 1% (0-3) Platelet Estimate Adequate (ADEQUATE) Anisocytosis Present Sodium Level 136mmol/L (136-145) Potassium Level 3.5mmol/L (3.5-5.1) Chloride Level 101mmol/L (98-107) Carbon Dioxide Level 24mmol/L (21-32) Anion Gap 11 (6-14) Blood Urea Nitrogen 14mg/dL (8-26) Creatinine 0.9mg/dL (0.7-1.3) Estimated GFR (Cockcroft-Gault) 83.7 BUN/Creatinine Ratio 16 (6-20) Glucose Level 95mg/dL (70-99) Calcium Level 9.0mg/dL (8.5-10.1) Magnesium Level 1.9mg/dL (1.8-2.4) Total Bilirubin 21.9mg/dL (0.2-1.0) Direct Bilirubin 15.0mg/dL (0.0-0.2) Aspartate Amino Transf (AST/SGOT) 59U/L (15-37) Alanine Aminotransferase (ALT/SGPT) 66U/L (16-63) Alkaline Phosphatase 213U/L (46-116) Total Protein 6.8g/dL (6.4-8.2) Albumin 2.6g/dL (3.4-5.0) Albumin/Globulin Ratio 0.6 (1.0-1.7) Meds Current Medications Potassium Chloride (Klor-Con) 20 meq 1X ONCE PO ; Start 12/15/16 at 08:45; Stop 12/15/16 at 08:46; Status DC Promethazine HCl/ Codeine (Phenergan With Codeine) 5 ml TID PO Last administered on 12/14/16t 19:56; Start 12/14/16 at 15:30 Assessment Assessment 1. mass R lobe liver with intrahepatic duct dilation 2. R lower lobe pulmonary nodule 3. HTN 4. early Alzheimer 5. h/o irritable bowel disease 6. DM II non insulin controlled 7. metabolic syndrome X 8. h/o ulcerative colitis 9. moderate chronic PCL malnutrition 10. HH large 11. CKD III PLAN: mass R lobe liver GI consult LFTs 12/05/15 WNL AP 97, ALT 39, AST 36 T bili 0.9 12/12/16 AP 229 12/13 264 ALT 77 75 AST 71 66 T. Bili 23.3 21.1 D. Bili 14.4 MRCP ordered.May need ERCP. Acute bronchitis 12/12 WBC 14.3 duoneb nodule RLL--consult pulmonary Stop Zithromax Start Rocephin 1gm IV daily for additional 3 days (has taken 2 days Zithromax) CKD III 12/04 BUN/Cr 1.0/0.9 12/12 BUN/Cr 17/1.36 Admit BUN 18 Cr 1.0 DVT/GI prophylaxis SCD/Cale PPI Condition, treatment, options were extensively discussed with the patient and his family. Hypokalemia- replace. Plan Plan The patient was seen and examined by me. Chart reviewed and plan of care formulated. Discussed with, reviewed and agree with CHEESE MAKER's notes, plan of care and orders with modifications as necessary. For more details regarding further plans, please refer to the orders. Condition, treatment, options were extensively discussed with the patient and family. SARITA MONTEJO MD Dec 15, 2016 10:25
--- NOTE | 2016-12-15 10:29 | PDOC ---
PULMONARY PROGRESS NOTES Subjective has cough, no sob, occ abd pain, no runny nose. Vitals Vital Signs Date Time Temp Pulse Resp B/P Pulse Ox O2 Delivery O2 Flow Rate FiO2 12/15/16 07:20 Room Air 12/15/16 07:17 96 12/15/16 07:00 98.1 67 16 131/84 98.1 Comments ros as mentioned as above other sys otherwise neg ROS: No Nausea, No Chest Pain General: Alert, Oriented X4 HEENT: Other (nc at perrl) Lungs: Clear Cardiovascular: S1, S2 Abdomen: Soft, Non-tender Neuro Exam: Alert Extremities: No Edema Skin: Other (jaundice) Labs Laboratory Tests Test 12/13/16 14:30 12/13/16 14:40 12/13/16 15:05 12/14/16 09:10 Urine Collection Type Clean catch Urine Color Fanny Urine Clarity Clear Urine pH 6.0 Urine Specific [place] >=1.030 Urine Protein Negativemg/dL (NEG-TRACE) Urine Glucose (UA) Negativemg/dL (NEG) Urine Ketones (Stick) Negativemg/dL (NEG) Urine Blood Negative (NEG) Urine Nitrite Negative (NEG) Urine Bilirubin Large (NEG) Urine Urobilinogen Dipstick 0.2mg/dL (0.2 mg/dL) Urine Leukocyte Esterase Negative (NEG) Urine RBC 0/HPF (0-2) Urine WBC Occ/HPF (0-4) Urine Squamous Epithelial Cells Few/LPF Urine Bacteria 0/HPF (0-FEW) Urine Mucus Marked/LPF Prothrombin Time 11.8SEC (11.7-14.0) Prothromb Time International Ratio 0.9 (0.8-1.1) Activated Partial Thromboplast Time 30SEC (24-38) Sodium Level 138mmol/L (136-145) 138mmol/L (136-145) Potassium Level 3.5mmol/L (3.5-5.1) 3.6mmol/L (3.5-5.1) Chloride Level 102mmol/L (98-107) 104mmol/L (98-107) Carbon Dioxide Level 24mmol/L (21-32) 23mmol/L (21-32) Anion Gap 12 (6-14) 11 (6-14) Blood Urea Nitrogen 18mg/dL (8-26) 12mg/dL (8-26) Creatinine 1.0mg/dL (0.7-1.3) 0.8mg/dL (0.7-1.3) Estimated GFR (Cockcroft-Gault) 74.1 95.8 Glucose Level 94mg/dL (70-99) 133mg/dL (70-99) Calcium Level 8.9mg/dL (8.5-10.1) 9.0mg/dL (8.5-10.1) Total Bilirubin 21.1mg/dL (0.2-1.0) 21.5mg/dL (0.2-1.0) Direct Bilirubin 14.5mg/dL (0.0-0.2) Aspartate Amino Transf (AST/SGOT) 66U/L (15-37) 66U/L (15-37) Alanine Aminotransferase (ALT/SGPT) 75U/L (16-63) 70U/L (16-63) Alkaline Phosphatase 264U/L (46-116) 225U/L (46-116) Total Protein 7.2g/dL (6.4-8.2) 6.9g/dL (6.4-8.2) Albumin 2.8g/dL (3.4-5.0) 2.5g/dL (3.4-5.0) Lipase 269U/L (73-393) White Blood Count 8.9x10^3/uL (4.0-11.0) 9.6x10^3/uL (4.0-11.0) Red Blood Count 4.50x10^6/uL (4.30-5.70) 4.47x10^6/uL (4.30-5.70) Hemoglobin 14.1g/dL (13.0-17.5) 14.1g/dL (13.0-17.5) Hematocrit 40.4% (39.0-53.0) 40.0% (39.0-53.0) Mean Corpuscular Volume 90fL (79-100) 90fL (79-100) Mean Corpuscular Hemoglobin 31pg (25-35) 32pg (25-35) Mean Corpuscular Hemoglobin Concent 35g/dL (31-37) 35g/dL (31-37) Red Cell Distribution Width 16.7% (11.5-14.5) 16.6% (11.5-14.5) Platelet Count 251x10^3/uL (140-400) 249x10^3/uL (140-400) Neutrophils (%) (Auto) 40% (31-73) 34% (31-73) Lymphocytes (%) (Auto) 47% (24-48) 51% (24-48) Monocytes (%) (Auto) 11% (0-9) 14% (0-9) Eosinophils (%) (Auto) 0% (0-3) 1% (0-3) Basophils (%) (Auto) 1% (0-3) 0% (0-3) Neutrophils # (Auto) 3.6x10^3uL (1.8-7.7) 3.2x10^3uL (1.8-7.7) Lymphocytes # (Auto) 4.2x10^3/uL (1.0-4.8) 4.9x10^3/uL (1.0-4.8) Monocytes # (Auto) 1.0x10^3/uL (0.0-1.1) 1.4x10^3/uL (0.0-1.1) Eosinophils # (Auto) 0.0x10^3/uL (0.0-0.7) 0.1x10^3/uL (0.0-0.7) Basophils # (Auto) 0.1x10^3/uL (0.0-0.2) 0.0x10^3/uL (0.0-0.2) Segmented Neutrophils % 65% (35-66) Lymphocytes % 23% (24-48) Monocytes % 12% (0-10) Platelet Estimate Adequate (ADEQUATE) Adequate (ADEQUATE) Large Platelets Present BUN/Creatinine Ratio 15 (6-20) Albumin/Globulin Ratio 0.6 (1.0-1.7) Test 12/15/16 05:10 White Blood Count 10.4x10^3/uL (4.0-11.0) Red Blood Count 4.27x10^6/uL (4.30-5.70) Hemoglobin 13.4g/dL (13.0-17.5) Hematocrit 38.5% (39.0-53.0) Mean Corpuscular Volume 90fL (79-100) Mean Corpuscular Hemoglobin 31pg (25-35) Mean Corpuscular Hemoglobin Concent 35g/dL (31-37) Red Cell Distribution Width 17.1% (11.5-14.5) Platelet Count 259x10^3/uL (140-400) Neutrophils (%) (Auto) 38% (31-73) Lymphocytes (%) (Auto) 51% (24-48) Monocytes (%) (Auto) 9% (0-9) Eosinophils (%) (Auto) 1% (0-3) Basophils (%) (Auto) 2% (0-3) Neutrophils # (Auto) 3.9x10^3uL (1.8-7.7) Lymphocytes # (Auto) 5.3x10^3/uL (1.0-4.8) Monocytes # (Auto) 0.9x10^3/uL (0.0-1.1) Eosinophils # (Auto) 0.1x10^3/uL (0.0-0.7) Basophils # (Auto) 0.2x10^3/uL (0.0-0.2) Segmented Neutrophils % 75% (35-66) Band Neutrophils % 2% (0-9) Lymphocytes % 15% (24-48) Monocytes % 5% (0-10) Eosinophils % 2% (0-5) Basophils % 1% (0-3) Platelet Estimate Adequate (ADEQUATE) Anisocytosis Present Sodium Level 136mmol/L (136-145) Potassium Level 3.5mmol/L (3.5-5.1) Chloride Level 101mmol/L (98-107) Carbon Dioxide Level 24mmol/L (21-32) Anion Gap 11 (6-14) Blood Urea Nitrogen 14mg/dL (8-26) Creatinine 0.9mg/dL (0.7-1.3) Estimated GFR (Cockcroft-Gault) 83.7 BUN/Creatinine Ratio 16 (6-20) Glucose Level 95mg/dL (70-99) Calcium Level 9.0mg/dL (8.5-10.1) Magnesium Level 1.9mg/dL (1.8-2.4) Total Bilirubin 21.9mg/dL (0.2-1.0) Direct Bilirubin 15.0mg/dL (0.0-0.2) Aspartate Amino Transf (AST/SGOT) 59U/L (15-37) Alanine Aminotransferase (ALT/SGPT) 66U/L (16-63) Alkaline Phosphatase 213U/L (46-116) Total Protein 6.8g/dL (6.4-8.2) Albumin 2.6g/dL (3.4-5.0) Albumin/Globulin Ratio 0.6 (1.0-1.7) Laboratory Tests Test 12/15/16 05:10 White Blood Count 10.4x10^3/uL (4.0-11.0) Red Blood Count 4.27x10^6/uL (4.30-5.70) Hemoglobin 13.4g/dL (13.0-17.5) Hematocrit 38.5% (39.0-53.0) Mean Corpuscular Volume 90fL (79-100) Mean Corpuscular Hemoglobin 31pg (25-35) Mean Corpuscular Hemoglobin Concent 35g/dL (31-37) Red Cell Distribution Width 17.1% (11.5-14.5) Platelet Count 259x10^3/uL (140-400) Neutrophils (%) (Auto) 38% (31-73) Lymphocytes (%) (Auto) 51% (24-48) Monocytes (%) (Auto) 9% (0-9) Eosinophils (%) (Auto) 1% (0-3) Basophils (%) (Auto) 2% (0-3) Neutrophils # (Auto) 3.9x10^3uL (1.8-7.7) Lymphocytes # (Auto) 5.3x10^3/uL (1.0-4.8) Monocytes # (Auto) 0.9x10^3/uL (0.0-1.1) Eosinophils # (Auto) 0.1x10^3/uL (0.0-0.7) Basophils # (Auto) 0.2x10^3/uL (0.0-0.2) Segmented Neutrophils % 75% (35-66) Band Neutrophils % 2% (0-9) Lymphocytes % 15% (24-48) Monocytes % 5% (0-10) Eosinophils % 2% (0-5) Basophils % 1% (0-3) Platelet Estimate Adequate (ADEQUATE) Anisocytosis Present Sodium Level 136mmol/L (136-145) Potassium Level 3.5mmol/L (3.5-5.1) Chloride Level 101mmol/L (98-107) Carbon Dioxide Level 24mmol/L (21-32) Anion Gap 11 (6-14) Blood Urea Nitrogen 14mg/dL (8-26) Creatinine 0.9mg/dL (0.7-1.3) Estimated GFR (Cockcroft-Gault) 83.7 BUN/Creatinine Ratio 16 (6-20) Glucose Level 95mg/dL (70-99) Calcium Level 9.0mg/dL (8.5-10.1) Magnesium Level 1.9mg/dL (1.8-2.4) Total Bilirubin 21.9mg/dL (0.2-1.0) Direct Bilirubin 15.0mg/dL (0.0-0.2) Aspartate Amino Transf (AST/SGOT) 59U/L (15-37) Alanine Aminotransferase (ALT/SGPT) 66U/L (16-63) Alkaline Phosphatase 213U/L (46-116) Total Protein 6.8g/dL (6.4-8.2) Albumin 2.6g/dL (3.4-5.0) Albumin/Globulin Ratio 0.6 (1.0-1.7) Medications Active Scripts Medications Dose Route/Sig Days Date Category Aspirin 81 Mg Tab.chew 81 Mg PO DAILY 12/13/16 Reported Fenofibrate (Fenofibrate Nanocrystallized) 48 Mg Tablet 48 Mg PO DAILY 12/13/16 Reported Apriso (Mesalamine) 0.375 Gm Cap.er.24h 4 Cap PO DAILY 12/13/16 Reported Omeprazole 20 Mg Capsule.dr 20 Mg PO DAILY06 12/13/16 Reported Azithromycin Tablet (Azithromycin) 250 Mg Tablet 250 Mg PO DAILY 12/13/16 Reported Prometh-Codein 6.25-10 mg/5 ml (Promethazine HCl/Codeine) 5 Ml Syrup 5 Ml PO TID 12/13/[address] reviewed. No acute finding apparent in the chest. 2 soft tissue pulmonary nodules in the right lower lobe each measuring approximately 8 to 9 mm. Both benign and malignant disease could account for the findings. Impression . IMPRESSION: 1. 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 2. Right lower lobe pulmonary nodules. I suspect these are metastatic disease, other differential diagnosis; benign tumor versus primary lung cancer versus others. 3. Hyperbilirubinemia secondary to hepatic mass. 4. Ex-smoker. 5. Dementia. 6. Hypercholesterolemia. Plan . PLAN: 1. Titrate FiO2 to keep O2 saturation 92%. 2. I do recommend PET scan. 3. mrcp scheduled. 4. I will follow along with you. 5. i do recommend Pulmonary function test, ordered. 6. The findings and recommendations were discussed with the patient and his family in details BERNABE LILLY MD Dec 15, 2016 10:29
[2016-12-15 11:00] VITALS: BP 123/80
[2016-12-15] MEDS ORDERED: GADOBUTROL 10 MMOL/10 ML VIAL IV ONE (14:00)
[2016-12-15] MEDS: MESALAMINE 1.2 GM TABLET.DR PO SCH (15:24)
[2016-12-15] MEDS: ASPIRIN 81 MG TAB.CHEW PO SCH (15:24)
[2016-12-15 19:00] VITALS: BP 120/77
[2016-12-15 23:00] VITALS: BP 124/77
[2016-12-16] MEDS ORDERED: IPRATRPIUM/ALBUTEROL 0.5/2.5MG 3 ML NEBU. NEB ONE (01:30)
[2016-12-16 03:00] VITALS: BP 122/70
[2016-12-16] MEDS ORDERED: BENZOCAINE/MENTHOL LOZENGE. PO PRN (03:00)
[2016-12-16 04:24] LABS: BASO # 0.2 x10^3/uL (0.0-0.2); BASO % 2 % (0-3); EOS % 1 % (0-3); HEMOGLOBIN 12.4 g/dL (13.0-17.5); LYMPH # 5.8 x10^3/uL (1.0-4.8); LYMPH % 56 % (24-48); MEAN CORPUSCULAR HEMOGLOBIN 31 pg (25-35); MEAN CORPUSCULAR HGB CONC 34 g/dL (31-37); MEAN CORPUSCULAR VOLUME 91 fL (79-100); MONO % 7 % (0-9); NEUT % 34 % (31-73); PLATELET COUNT 250 x10^3/uL (140-400); RED BLOOD COUNT 3.96 x10^6/uL (4.30-5.70); RED CELL DISTRIBUTION WIDTH 17.1 % (11.5-14.5); WHITE BLOOD COUNT 10.2 x10^3/uL (4.0-11.0)
[2016-12-16 04:59] LABS: ALBUMIN 2.6 g/dL (3.4-5.0); ALBUMIN/GLOBULIN RATIO 0.6 (1.0-1.7); CALCIUM 9.3 mg/dL (8.5-10.1); GFR 74.1; POTASSIUM 3.6 mmol/L (3.5-5.1); TOTAL BILIRUBIN 22.9 mg/dL (0.2-1.0); TOTAL PROTEIN 6.8 g/dL (6.4-8.2)
[2016-12-16] MEDS: CEFTRIAXONE SODIUM 1 GM in IV NORMAL SALINE 50ML 50 ML IV SCH (06:08)
[2016-12-16 07:00] VITALS: BP 117/78
[2016-12-16] MEDS ORDERED: IPRATRPIUM/ALBUTEROL 0.5/2.5MG 3 ML NEBU. NEB SCH (08:00)
[2016-12-16] MEDS: ASPIRIN 81 MG TAB.CHEW PO SCH (09:00)
[2016-12-16] MEDS: MESALAMINE 1.2 GM TABLET.DR PO SCH (09:00)
[2016-12-16] MEDS: PROMETH/CODEINE 6.25/10MG 5 ML SYRUP. PO SCH ×4 (09:00→19:59)
[2016-12-16] MEDS: PANTOPRAZOLE 40 MG TABLET. PO SCH (09:01)
[2016-12-16] MEDS: IPRATRPIUM/ALBUTEROL 0.5/2.5MG 3 ML NEBU. NEB SCH ×4 (09:03→20:14)
[2016-12-16 09:40] LABS: % BASOS 1 % (0-3); % EOS 1 % (0-5); PLT ESTIMATE ADEQUATE (ADEQUATE)
[2016-12-16 09:43] LABS: ANISOCYTOSIS SLIGHT; TARGET CELLS PRESENT
--- NOTE | 2016-12-16 09:48 | PDOC ---
PROGRESS NOTES Subjective Subjective no new complaints Objective Objective Vital Signs Date Time Temp Pulse Resp B/P Pulse Ox O2 Delivery O2 Flow Rate FiO2 12/16/16 09:04 98 Room Air 12/16/16 07:00 98.1 87 20 117/78 98.1 Intake and Output 12/16/16 07:00 Intake Total 0 ml Balance 0 ml Intake Oral 0 ml # Voids 2 Physical Exam Abdomen: Normal bowel sounds, Soft Heart: Regular rate, Normal S1 Extremities: No clubbing General: Alert, No acute distress Lungs: Clear to auscultation MUSCULOSKELETAL: No deformity Neck: Supple Neuro: Normal speech Psych/Mental Status: Mental status NL Skin: No breakdown Diagnosis Problem List Problems Medical Problems: (1) Jaundice Status: Acute (2) Liver tumor Status: Acute Assessment Assessment IMP:Obstructive Jaundice 1. mass R lobe liver with intrahepatic duct dilation 2. R lower lobe pulmonary nodule 3. HTN 4. early Alzheimer 5. h/o irritable bowel disease 6. DM II non insulin controlled 7. metabolic syndrome X 8. h/o ulcerative colitis 9. moderate chronic PCL malnutrition 10. HH large 11. CKD III PLAN: MRCP done report pending. lft still high. mass R lobe liver GI consulted. LFTs 12/05/15 WNL AP 97, ALT 39, AST 36 T bili 0.9 12/12/16 AP 229 12/13 264 ALT 77 75 AST 71 66 T. Bili 23.3 21.1 D. Bili 14.4 MRCP ordered.May need ERCP. Acute bronchitis 12/12 WBC 14.3 duoneb nodule RLL--consult pulmonary Stop Zithromax Start Rocephin 1gm IV daily for additional 3 days (has taken 2 days Zithromax) CKD III 12/04 BUN/Cr 1.0/0.9 12/12 BUN/Cr 17/1.36 Admit BUN 18 Cr 1.0 DVT/GI prophylaxis SCD/Cale PPI Condition, treatment, options were extensively discussed with the patient and his family. Hypokalemia- replaced. Problems: Plan Plan of Care Problems Medical Problems: (1) Jaundice Status: Acute (2) Liver tumor Status: Acute Comment Review of Relevant I have reviewed the following items isaac (where applicable) has been applied. Labs Laboratory Tests Test 12/16/16 03:40 White Blood Count 10.2x10^3/uL (4.0-11.0) Red Blood Count 3.96x10^6/uL (4.30-5.70) Hemoglobin 12.4g/dL (13.0-17.5) Hematocrit 36.0% (39.0-53.0) Mean Corpuscular Volume 91fL (79-100) Mean Corpuscular Hemoglobin 31pg (25-35) Mean Corpuscular Hemoglobin Concent 34g/dL (31-37) Red Cell Distribution Width 17.1% (11.5-14.5) Platelet Count 250x10^3/uL (140-400) Neutrophils (%) (Auto) 34% (31-73) Lymphocytes (%) (Auto) 56% (24-48) Monocytes (%) (Auto) 7% (0-9) Eosinophils (%) (Auto) 1% (0-3) Basophils (%) (Auto) 2% (0-3) Neutrophils # (Auto) 3.5x10^3uL (1.8-7.7) Lymphocytes # (Auto) 5.8x10^3/uL (1.0-4.8) Monocytes # (Auto) 0.7x10^3/uL (0.0-1.1) Eosinophils # (Auto) 0.1x10^3/uL (0.0-0.7) Basophils # (Auto) 0.2x10^3/uL (0.0-0.2) Segmented Neutrophils % 68% (35-66) Lymphocytes % 18% (24-48) Monocytes % 12% (0-10) Eosinophils % 1% (0-5) Basophils % 1% (0-3) Platelet Estimate Adequate (ADEQUATE) Large Platelets Present Anisocytosis Slight Target Cells Present Sodium Level 139mmol/L (136-145) Potassium Level 3.6mmol/L (3.5-5.1) Chloride Level 103mmol/L (98-107) Carbon Dioxide Level 24mmol/L (21-32) Anion Gap 12 (6-14) Blood Urea Nitrogen 15mg/dL (8-26) Creatinine 1.0mg/dL (0.7-1.3) Estimated GFR (Cockcroft-Gault) 74.1 BUN/Creatinine Ratio 15 (6-20) Glucose Level 90mg/dL (70-99) Calcium Level 9.3mg/dL (8.5-10.1) Total Bilirubin 22.9mg/dL (0.2-1.0) Aspartate Amino Transf (AST/SGOT) 61U/L (15-37) Alanine Aminotransferase (ALT/SGPT) 63U/L (16-63) Alkaline Phosphatase 208U/L (46-116) Total Protein 6.8g/dL (6.4-8.2) Albumin 2.6g/dL (3.4-5.0) Albumin/Globulin Ratio 0.6 (1.0-1.7) Medications Current Medications Albuterol/ Ipratropium (Duoneb) 3 ml 1X ONCE NEB ; Start 12/16/16 at 01:30; Stop 12/16/16 at 01:30; Status DC Albuterol/ Ipratropium (Duoneb) 3 ml RTQID NEB ; Start 12/16/16 at 08:00; Stop 12/16/16 at 08:00; Status DC Gadobutrol (Gadavist) 9 mmol 1X ONCE IV Last administered on 12/15/16t 14:00; Start 12/15/16 at 14:00; Stop 12/15/16 at 14:01; Status DC Potassium Chloride (Klor-Con) 20 meq 1X ONCE PO ; Start 12/15/16 at 15:30; Stop 12/15/16 at 15:31; Status DC Throat Lozenges (Cepacol Sore Throat Lozenge) 1 damaris PRN Q2HRS PRN PO SORE THROAT; Start 12/16/16 at 03:00 Vitals/I & O Vital Sign - Last 24 Hours 12/15/16 12/15/16 12/15/16 12/15/16 11:00 11:06 15:27 19:00 Temp 97.9 97.8 97.9 97.8 Pulse 61 73 Resp 20 18 B/P 123/80 120/77 Pulse Ox 93 95 O2 Delivery Room Air Room Air Room Air Room Air 12/15/16 12/15/16 12/15/16 12/16/16 19:27 20:00 23:00 03:00 Temp 100.0 99.3 100.0 99.3 Pulse 94 73 Resp 18 18 B/P 124/77 122/70 Pulse Ox 98 95 94 O2 Delivery Room Air Room Air Room Air Room Air 12/16/16 12/16/16 12/16/16 07:00 07:05 09:04 Temp 98.1 98.1 Pulse 87 Resp 20 B/P 117/78 Pulse Ox 96 98 O2 Delivery Room Air Room Air Room Air Intake and Output 12/15/16 12/15/16 12/16/16 15:00 23:00 07:00 Intake Total 0 ml Balance 0 ml KOFFI MOORE MD Dec 16, 2016 09:48
[2016-12-16 11:00] VITALS: BP 122/69
--- NOTE | 2016-12-16 11:39 | RAD ---
PROCEDURE MRI and MRCP abdomen with and without contrast. HISTORY Biliary stricture. Jaundice. TECHNIQUE MRI and MRCP of the abdomen were performed before and after the intravenous administration of 9 milliliters Gadovist. Three-dimensional reconstructions of the biliary tree were also performed. COMPARISON 12/13/2016. FINDINGS Images of the lung bases reveal at least 2 right lower lobe nodules measuring up to 1.4 centimeters. These appear cavitary. There is a large hiatal hernia. It contains the majority of the fundus of the stomach and lymph nodes that measure up to 1.6 centimeters. There is an ill-defined mass in the right hepatic lobe adjacent to the clifford. It appears to obstruct multiple left and right biliary radicles, as well as the right portal vein. Its extent is not clearly measurable, but the involved region measures at least 6 x 4.7 centimeters. The left biliary system is obstructed along the periphery of the involved region at the confluence. The right biliary radicles are obstructed more peripherally. The downstream common duct is decompressed. The pancreas is unremarkable. No pancreatic mass is appreciated. The gallbladder is thick-walled but decompressed. No primary gallbladder mass is seen. The adrenal glands, kidneys and spleen are unremarkable. The inferior vena cava on is adjacent to the mass along its hepatic portion. It is not distended inferiorly, but at least a partial stricture is suspected. IMPRESSION - 6 x 4.7 centimeter ill-defined right hepatic lobe mass adjacent to the clifford. 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 - Cavitary nodules in the right lower lobe measure up to 1.4 centimeters. These are concerning for metastatic disease. - Gallbladder wall thickening is likely secondary to the hepatic process. No primary gallbladder lesion is appreciated. - Large hiatal hernia. This contains some prominent gastrohepatic lymph nodes, nonspecific but concerning in this setting. Electronically signed by: Lamberto Ceron (Dec 16, 2016 11:37:49)
--- NOTE | 2016-12-16 14:43 | PDOC ---
Subjective: Subjective: Occasional abd pain but forgets which side. Decreased appetite. Says saw Dr. Rodrigez and that further workup was suggested at [facility]. Asks when he can DC. Objective: Vital Signs: Vital Signs Date Time Temp Pulse Resp B/P Pulse Ox O2 Delivery O2 Flow Rate FiO2 12/16/16 12:30 97 Room Air 12/16/16 11:00 98.2 83 20 122/69 98.2 Labs: Laboratory Tests Test 12/16/16 03:40 White Blood Count 10.2x10^3/uL Red Blood Count 3.96x10^6/uL Hemoglobin 12.4g/dL Hematocrit 36.0% Mean Corpuscular Volume 91fL Mean Corpuscular Hemoglobin 31pg Mean Corpuscular Hemoglobin Concent 34g/dL Red Cell Distribution Width 17.1% Platelet Count 250x10^3/uL Neutrophils (%) (Auto) 34% Lymphocytes (%) (Auto) 56% Monocytes (%) (Auto) 7% Eosinophils (%) (Auto) 1% Basophils (%) (Auto) 2% Neutrophils # (Auto) 3.5x10^3uL Lymphocytes # (Auto) 5.8x10^3/uL Monocytes # (Auto) 0.7x10^3/uL Eosinophils # (Auto) 0.1x10^3/uL Basophils # (Auto) 0.2x10^3/uL Segmented Neutrophils % 68% Lymphocytes % 18% Monocytes % 12% Eosinophils % 1% Basophils % 1% Platelet Estimate Adequate Large Platelets Present Anisocytosis Slight Target Cells Present Sodium Level 139mmol/L Potassium Level 3.6mmol/L Chloride Level 103mmol/L Carbon Dioxide Level 24mmol/L Anion Gap 12 Blood Urea Nitrogen 15mg/dL Creatinine 1.0mg/dL Estimated GFR (Cockcroft-Gault) 74.1 BUN/Creatinine Ratio 15 Glucose Level 90mg/dL Calcium Level 9.3mg/dL Total Bilirubin 22.9mg/dL Aspartate Amino Transf (AST/SGOT) 61U/L Alanine Aminotransferase (ALT/SGPT) 63U/L Alkaline Phosphatase 208U/L Total Protein 6.8g/dL Albumin 2.6g/dL Albumin/Globulin Ratio 0.6 Imaging: CT A/P IMPRESSION: Intrahepatic biliary ductal dilatation the etiology of which is uncertain. There is a possible hepatic mass in the area of the clifford hepatis. There is some borderline retroperitoneal adenopathy in the upper abdomen. 8 to 9 mm pulmonary nodule in the right lower lobe. RUQ US IMPRESSION: 1. Heterogeneous mass in the right lobe of the liver with associated intrahepatic bile duct dilatation. Malignancy such as cholangiocarcinoma, hepatoma or metastatic disease is suspected. 2. Heterogeneous gallbladder wall thickening which can be due to a variety of causes including cholecystitis, liver disease or hypoproteinemia. Chest CT IMPRESSION: No acute finding apparent in the chest. 2 soft tissue pulmonary nodules in the right lower lobe each measuring approximately 8 to 9 mm. Both benign and malignant disease could account for the findings. Infectious etiology is not entirely excluded but is felt least likely. Abd MRI, MRCP - 6 x 4.7 centimeter ill-defined right hepatic lobe mass adjacent to the clifford. It results in severe strictures of the right and left intrahepatic biliary tree , concerning for cholangiocarcinoma. 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 - Cavitary nodules in the right lower lobe measure up to 1.4 centimeters. These are concerning for metastatic disease. - Gallbladder wall thickening is likely secondary to the hepatic process. No primary gallbladder lesion is appreciated. - Large hiatal hernia. This contains some prominent gastrohepatic lymph nodes, nonspecific but concerning in this setting. PE: GEN: jaundiced, NAD LUNGS: clear anteriorly HEART: RRR ABD: S/NT NEURO/PSYCH: A & O 3 OTHER: family/friends present A/P: Liver mass, jaundice, elevated LFTs -imaging as above concerning for cholangiocarcinoma -bili 22.9, CEA and CA19-9 pending -Dr. Rodrigez saw today Ulcerative colitis -?PSC -- Other per Dr. Burris. WALTER ATKINS Dec 16, 2016 14:43
[2016-12-16 15:00] VITALS: BP 119/73
--- NOTE | 2016-12-16 15:01 | PDOC ---
PULMONARY PROGRESS NOTES Subjective has cough, no sob, occ abd pain, no runny nose. Vitals Vital Signs Date Time Temp Pulse Resp B/P Pulse Ox O2 Delivery O2 Flow Rate FiO2 12/16/16 12:30 97 Room Air 12/16/16 11:00 98.2 83 20 122/69 98.2 Comments ros as mentioned as above other sys otherwise neg ROS: No Nausea, No Chest Pain General: Alert, Oriented X4 HEENT: Other (nc at perrl) Lungs: Clear Cardiovascular: S1, S2 Abdomen: Soft, Non-tender Neuro Exam: Alert Extremities: No Edema Skin: Other (jaundice) Labs Laboratory Tests Test 12/15/16 05:10 12/16/16 03:40 White Blood Count 10.4x10^3/uL (4.0-11.0) 10.2x10^3/uL (4.0-11.0) Red Blood Count 4.27x10^6/uL (4.30-5.70) 3.96x10^6/uL (4.30-5.70) Hemoglobin 13.4g/dL (13.0-17.5) 12.4g/dL (13.0-17.5) Hematocrit 38.5% (39.0-53.0) 36.0% (39.0-53.0) Mean Corpuscular Volume 90fL (79-100) 91fL (79-100) Mean Corpuscular Hemoglobin 31pg (25-35) 31pg (25-35) Mean Corpuscular Hemoglobin Concent 35g/dL (31-37) 34g/dL (31-37) Red Cell Distribution Width 17.1% (11.5-14.5) 17.1% (11.5-14.5) Platelet Count 259x10^3/uL (140-400) 250x10^3/uL (140-400) Neutrophils (%) (Auto) 38% (31-73) 34% (31-73) Lymphocytes (%) (Auto) 51% (24-48) 56% (24-48) Monocytes (%) (Auto) 9% (0-9) 7% (0-9) Eosinophils (%) (Auto) 1% (0-3) 1% (0-3) Basophils (%) (Auto) 2% (0-3) 2% (0-3) Neutrophils # (Auto) 3.9x10^3uL (1.8-7.7) 3.5x10^3uL (1.8-7.7) Lymphocytes # (Auto) 5.3x10^3/uL (1.0-4.8) 5.8x10^3/uL (1.0-4.8) Monocytes # (Auto) 0.9x10^3/uL (0.0-1.1) 0.7x10^3/uL (0.0-1.1) Eosinophils # (Auto) 0.1x10^3/uL (0.0-0.7) 0.1x10^3/uL (0.0-0.7) Basophils # (Auto) 0.2x10^3/uL (0.0-0.2) 0.2x10^3/uL (0.0-0.2) Segmented Neutrophils % 75% (35-66) 68% (35-66) Band Neutrophils % 2% (0-9) Lymphocytes % 15% (24-48) 18% (24-48) Monocytes % 5% (0-10) 12% (0-10) Eosinophils % 2% (0-5) 1% (0-5) Basophils % 1% (0-3) 1% (0-3) Platelet Estimate Adequate (ADEQUATE) Adequate (ADEQUATE) Anisocytosis Present Slight Sodium Level 136mmol/L (136-145) 139mmol/L (136-145) Potassium Level 3.5mmol/L (3.5-5.1) 3.6mmol/L (3.5-5.1) Chloride Level 101mmol/L (98-107) 103mmol/L (98-107) Carbon Dioxide Level 24mmol/L (21-32) 24mmol/L (21-32) Anion Gap 11 (6-14) 12 (6-14) Blood Urea Nitrogen 14mg/dL (8-26) 15mg/dL (8-26) Creatinine 0.9mg/dL (0.7-1.3) 1.0mg/dL (0.7-1.3) Estimated GFR (Cockcroft-Gault) 83.7 74.1 BUN/Creatinine Ratio 16 (6-20) 15 (6-20) Glucose Level 95mg/dL (70-99) 90mg/dL (70-99) Calcium Level 9.0mg/dL (8.5-10.1) 9.3mg/dL (8.5-10.1) Magnesium Level 1.9mg/dL (1.8-2.4) Total Bilirubin 21.9mg/dL (0.2-1.0) 22.9mg/dL (0.2-1.0) Direct Bilirubin 15.0mg/dL (0.0-0.2) Aspartate Amino Transf (AST/SGOT) 59U/L (15-37) 61U/L (15-37) Alanine Aminotransferase (ALT/SGPT) 66U/L (16-63) 63U/L (16-63) Alkaline Phosphatase 213U/L (46-116) 208U/L (46-116) Total Protein 6.8g/dL (6.4-8.2) 6.8g/dL (6.4-8.2) Albumin 2.6g/dL (3.4-5.0) 2.6g/dL (3.4-5.0) Albumin/Globulin Ratio 0.6 (1.0-1.7) 0.6 (1.0-1.7) Large Platelets Present Target Cells Present Laboratory Tests Test 12/16/16 03:40 White Blood Count 10.2x10^3/uL (4.0-11.0) Red Blood Count 3.96x10^6/uL (4.30-5.70) Hemoglobin 12.4g/dL (13.0-17.5) Hematocrit 36.0% (39.0-53.0) Mean Corpuscular Volume 91fL (79-100) Mean Corpuscular Hemoglobin 31pg (25-35) Mean Corpuscular Hemoglobin Concent 34g/dL (31-37) Red Cell Distribution Width 17.1% (11.5-14.5) Platelet Count 250x10^3/uL (140-400) Neutrophils (%) (Auto) 34% (31-73) Lymphocytes (%) (Auto) 56% (24-48) Monocytes (%) (Auto) 7% (0-9) Eosinophils (%) (Auto) 1% (0-3) Basophils (%) (Auto) 2% (0-3) Neutrophils # (Auto) 3.5x10^3uL (1.8-7.7) Lymphocytes # (Auto) 5.8x10^3/uL (1.0-4.8) Monocytes # (Auto) 0.7x10^3/uL (0.0-1.1) Eosinophils # (Auto) 0.1x10^3/uL (0.0-0.7) Basophils # (Auto) 0.2x10^3/uL (0.0-0.2) Segmented Neutrophils % 68% (35-66) Lymphocytes % 18% (24-48) Monocytes % 12% (0-10) Eosinophils % 1% (0-5) Basophils % 1% (0-3) Platelet Estimate Adequate (ADEQUATE) Large Platelets Present Anisocytosis Slight Target Cells Present Sodium Level 139mmol/L (136-145) Potassium Level 3.6mmol/L (3.5-5.1) Chloride Level 103mmol/L (98-107) Carbon Dioxide Level 24mmol/L (21-32) Anion Gap 12 (6-14) Blood Urea Nitrogen 15mg/dL (8-26) Creatinine 1.0mg/dL (0.7-1.3) Estimated GFR (Cockcroft-Gault) 74.1 BUN/Creatinine Ratio 15 (6-20) Glucose Level 90mg/dL (70-99) Calcium Level 9.3mg/dL (8.5-10.1) Total Bilirubin 22.9mg/dL (0.2-1.0) Aspartate Amino Transf (AST/SGOT) 61U/L (15-37) Alanine Aminotransferase (ALT/SGPT) 63U/L (16-63) Alkaline Phosphatase 208U/L (46-116) Total Protein 6.8g/dL (6.4-8.2) Albumin 2.6g/dL (3.4-5.0) Albumin/Globulin Ratio 0.6 (1.0-1.7) Medications Active Scripts Medications Dose Route/Sig Days Date Category Aspirin 81 Mg Tab.chew 81 Mg PO DAILY 12/13/16 Reported Fenofibrate (Fenofibrate Nanocrystallized) 48 Mg Tablet 48 Mg PO DAILY 12/13/16 Reported Apriso (Mesalamine) 0.375 Gm Cap.er.24h 4 Cap PO DAILY 12/13/16 Reported Omeprazole 20 Mg Capsule.dr 20 Mg PO DAILY06 12/13/16 Reported Azithromycin Tablet (Azithromycin) 250 Mg Tablet 250 Mg PO DAILY 12/13/16 Reported Prometh-Codein 6.25-10 mg/5 ml (Promethazine HCl/Codeine) 5 Ml Syrup 5 Ml PO TID 12/13/[address] reviewed. No acute finding apparent in the chest. 2 soft tissue pulmonary nodules in the right lower lobe each measuring approximately 8 to 9 mm. Both benign and malignant disease could account for the findings. Impression . 1. 6 x 4.7 centimeter ill-defined right hepatic lobe mass adjacent to the clifford. 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 2. Right lower lobe pulmonary nodules. I suspect these are metastatic disease, other differential diagnosis; benign tumor 3. Hyperbilirubinemia secondary to hepatic mass. 4. Ex-smoker. 5. Dementia. 6. Hypercholesterolemia. Plan . 1. Titrate FiO2 to keep O2 saturation 92%. 2. w/u of liver mass per GI 3. f/u ct chest in 4-6 months. no w/u at present 4. I will follow along with you. 5. i do recommend Pulmonary function test as OP 6. The findings and recommendations were discussed with the patient and his family in details DANICA LEHMAN MD Dec 16, 2016 15:01
--- NOTE | 2016-12-16 15:39 | PDOC ---
Provider Note Provider Note Med Onc consult 1. Liver mass -w/u of liver mass per GI. I d/w DR Burris who recommended transfer to . See dictation [id number] ANNIE GRECO MD Dec 16, 2016 15:38
[2016-12-16 19:00] VITALS: BP 140/78
[2016-12-16 23:04] VITALS: BP 121/70
--- NOTE | 2016-12-17 00:13 | CONS ---
DATE OF CONSULTATION: 12/16/2016 REQUESTING PHYSICIAN: Dr. Enma Lott. REASON FOR CONSULTATION: Liver mass. HISTORY OF PRESENT ILLNESS: The patient is a 71-year-old [place] gentleman who was evaluated by his primary care physician, Dr. Hernandez on 12/12/2016 and he was treated for acute bronchitis. Labs are drawn that revealed elevated liver function tests with an alkaline phosphatase of 229, ALT 77, bilirubin 23.3. He was instructed to go to the Emergency Room. The patient's reports that she has noticed the patient had jaundice for at least a week prior to admission. He had further workup with a CT scan of the abdomen and pelvis on 12/13/2016 that revealed intrahepatic biliary duct dilatation and a possible hepatic mass in the area of clifford hepatis that are borderline retroperitoneal adenopathy and 8-9 mm pulmonary nodule in the right lower lobe. He underwent a CT scan of the chest on 12/14/2016 that revealed two soft tissue pulmonary nodules in the right lower lobe measuring 8-9 mm. He underwent MRI of the abdomen and MRCP on 12/15/2016 and this revealed 6 x 4.7 cm ill-defined right hepatic lobe mass adjacent to the clifford hepatis. It results in severe strictures of the right and left intrahepatic biliary tree, which is concerning for cholangiocarcinoma. 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 In addition, cavitary nodules in the right lower lobe measuring 1.4 cm are present, which is concerning for metastatic disease. He denies any significant loss of weight. He does have a history of ulcerative colitis and he gets colonoscopies by Dr. Rodriguez Lobo every 2 years and has not noted any significant abnormalities. I was asked to see the patient for further evaluation of suspected malignancy with liver metastasis. PAST MEDICAL HISTORY: Hypertension, dementia, GERD, ulcerative colitis, and diabetes mellitus. FAMILY HISTORY: Negative for colon cancer. Father had liver problems. SOCIAL HISTORY: He quit smoking in 1986. He used to drink alcohol socially and he quit drinking. REVIEW OF SYSTEMS: A 12-point review of system was performed. Pertinent positives are mentioned in the history of present illness. Rest of the system review is negative. PHYSICAL EXAMINATION: GENERAL APPEARANCE: The patient is a 71-year-old gentleman who is in no acute cardiorespiratory distress. VITAL SIGNS: Blood pressure 122/69, temperature 98.2. HEENT: Atraumatic, normocephalic. Eyes: He has icterus. NECK: Supple. CHEST: Bilaterally symmetrical. No crepitations or rhonchi heard. HEART: S1, S2 normal. ABDOMEN: Soft, nontender. CENTRAL NERVOUS SYSTEM: No focal neurological deficits. LYMPHATICS: No lymphadenopathy. SKIN: There is evidence of jaundice. CENTRAL NERVOUS SYSTEM: No focal deficits. LABORATORY DATA: WBC 10.2, hemoglobin 12.4, platelet count 250, total bilirubin 22.9, AST 61, AST 63, alkaline phosphatase 208. This was done on 12/16/2016. IMPRESSION AND PLAN: 1. Liver mass involving the right hepatic lobe with severe strictures of the right and left intrahepatic biliary tree is concerning for cholangiocarcinoma. There is also evidence of 1.4 cm right lower lobe lung nodules, which is concerning for metastatic disease. I reviewed the MRI findings with the patient and family and also explained the concern for cholangiocarcinoma and the concern for lung metastasis. I also explained the need for further evaluation with a biopsy. I also discussed the role of palliative chemotherapy after confirmation of diagnosis. I reviewed the films and discussed with identity management consultant, Dr. Hardeep Burris. Dr. Burris felt that the patient may need metal stents, which is not available here and he would recommend transferring to another institution such as for further management and a biopsy can be done at the same time. I discussed in detail with the patient and family, I also notified Dr. Lott about the above recommendations. I discussed with Dr. Lott. 2. Ulcerative colitis. 3. Elevated liver function tests due to #1. ANNIE GRECO MD DR: HUNG/francois JOB#: [id number] / [id number] ENMA Martinez MD [facility] CENTERJeanette
[2016-12-17 03:02] VITALS: BP 124/72
[2016-12-17 05:00] LABS: BASO # 0.1 x10^3/uL (0.0-0.2); BASO % 1 % (0-3); HEMOGLOBIN 12.9 g/dL (13.0-17.5); MEAN CORPUSCULAR HEMOGLOBIN 31 pg (25-35); MEAN CORPUSCULAR HGB CONC 34 g/dL (31-37); PLATELET COUNT 275 x10^3/uL (140-400); RED BLOOD COUNT 4.15 x10^6/uL (4.30-5.70); RED CELL DISTRIBUTION WIDTH 17.6 % (11.5-14.5); WHITE BLOOD COUNT 11.7 x10^3/uL (4.0-11.0)
--- NOTE | 2016-12-17 05:05 | ACF ---
Admission Forms Criteria LIVER DISEASE COMPLICATIONS Clinical Indications for Admission to Inpatient Care (Place 'X' for any and all applicable criteria): Admission is indicated for patient with ANY ONE of the following(1)(2)(3)(4): [ ]I. Inpatient admission required rather than observation care because of ANY ONE of the following: [ ]a) Hemodynamic instability that is severe or persistent [ ]b) Severe electrolyte abnormalities requiring inpatient care [ ]c) Respiratory compromise that is severe or persistent [ ]d) Coagulation abnormal that is severe or persistent [ ]e) Severe pain requiring acute inpatient management [ ]f) Renal insufficiency that is severe or worsening [ ]g) Metabolic abnormalities (e.g., vomiting, hypoglycemia, acidosis) that are severe or persistent [ ]h) Hypovolemia or hypervolemia that is severe or persistent [ ]i) Absent bowel sounds with complete ileus(2) [ ]j) Signs of intestinal obstruction or peritonitis[A] [ ]k) IV fluid to replace significant ongoing losses (>3 L/m2 per day) [ ]l) Continuous IV infusion of anticoagulation, platelet inhibitor, vasoactive, or antiarrhythmic medication [ ]m) Percutaneous or open drainage (e.g., abscess, biliary tract) procedures [ ]n) Parenteral nutrition regimen that must be implemented on inpatient basis [ ]o) Other condition treatment or monitoring requiring inpatient admission [ ]II. Infected hepatic hydrothorax (eg, empyema) [ ]III. Hepatorenal syndrome (eg, elevated. creatinine with adequate volume status and negative evaluation for other cause)(8) [ ]IV. Spontaneous bacterial peritonitis [ ]V. Suspected infected ascites as indicated by ANY ONE of the following: [ ]a) Temp >100 degrees F (37.8 C ) [ ]b) High WBC count [ ]c) Abdominal pain or tenderness not relieved by paracentesis [ ]. New-onset or worsening hepatic encephalopathy(7) [ ]VII. Suspected fulminant hepatic failure (e.g., acute coagulopathy with hepatic encephalopathy or acute elevation of hepatic transaminases to more than 15 times baseline)(4) [X]VIII. Acute hepatitis (e.g., ALT and AST at least 3 times baseline) with coagulopathy or severe jaundice as indicated by ANY ONE of the following(9)(10): [X]a) Bilirubin >20 mg/dL (342 moles/L)(11) [ ]b) Acute elevation of PT to >50% above normal or INR >1.5 [ ] IX. Treatment of injury from hepatotoxin (e.g., acetaminophen) that requires inpatient monitoring [ ] X. Acute fatty liver of Extended stay beyond goal length of stay may be needed for(3)(7): [ ]a) Hepatorenal syndrome [ ]b) Severe or persistent hepatic encephalopathy [ ]c) Renal failure due to other causes associated with cirrhosis (e.g., hypovolemia) [ ]d) Severe or persistent coagulation abnormalities [ ]e) Refractory ascites, volume, or electrolyte abnormality [ ]f) Severe or persistent gastroesophageal bleeding [ ]g) Severe infectious or hepatotoxin-induced hepatitis (eg, acetaminophen) [ ]h) Hemodynamic instability that is severe or persistent The original [facility] content created by [email or web address] has been revised. The portions of the content which have been revised are identified through the use of italic text or in bold, and [facility] has neither reviewed nor approved the modified material. All other unmodified content is copyright [facility] [employer]. Please see references footnoted in the original [facility] edition 2016 Admission Criteria Met?: Yes NERY COLLADO Dec 17, 2016 05:05
[2016-12-17 05:11] LABS: EOS % 3 % (0-3); HEMATOCRIT 37.4 % (39.0-53.0); LYMPH # 5.4 x10^3/uL (1.0-4.8); LYMPH % 46 % (24-48); MEAN CORPUSCULAR VOLUME 90 fL (79-100); MONO % 9 % (0-9); NEUT % 42 % (31-73)
[2016-12-17 05:25] LABS: ALBUMIN 2.5 g/dL (3.4-5.0); ALBUMIN/GLOBULIN RATIO 0.6 (1.0-1.7); CALCIUM 9.1 mg/dL (8.5-10.1); CREATININE 0.9 mg/dL (0.7-1.3); GFR 83.7; POTASSIUM 3.6 mmol/L (3.5-5.1); TOTAL BILIRUBIN 23.6 mg/dL (0.2-1.0); TOTAL PROTEIN 6.7 g/dL (6.4-8.2)
[2016-12-17 05:32] LABS: % EOS 1 % (0-5); ANISOCYTOSIS SLIGHT; PLT ESTIMATE ADEQUATE (ADEQUATE); TARGET CELLS PRESENT
[2016-12-17] MEDS: CEFTRIAXONE SODIUM 1 GM in IV NORMAL SALINE 50ML 50 ML IV SCH ×2 (06:31→07:13)
[2016-12-17 07:00] VITALS: BP 113/73
[2016-12-17] MEDS: IPRATRPIUM/ALBUTEROL 0.5/2.5MG 3 ML NEBU. NEB SCH ×4 (08:06→20:00)
--- NOTE | 2016-12-17 08:56 | PDOC ---
PULMONARY PROGRESS NOTES Subjective not more soa Vitals Vital Signs Date Time Temp Pulse Resp B/P Pulse Ox O2 Delivery O2 Flow Rate FiO2 12/17/16 08:10 Room Air 12/17/16 08:07 97 12/17/16 07:00 98.1 74 18 113/73 98.1 Comments ros as mentioned as above other sys otherwise neg ROS: No Nausea, No Chest Pain General: Alert, Oriented X4 HEENT: Other (nc at perrl) Lungs: Clear Cardiovascular: S1, S2 Abdomen: Soft, Non-tender Neuro Exam: Alert Extremities: No Edema Skin: Other (jaundice) Labs Laboratory Tests Test 12/16/16 03:40 12/17/16 04:20 White Blood Count 10.2x10^3/uL (4.0-11.0) 11.7x10^3/uL (4.0-11.0) Red Blood Count 3.96x10^6/uL (4.30-5.70) 4.15x10^6/uL (4.30-5.70) Hemoglobin 12.4g/dL (13.0-17.5) 12.9g/dL (13.0-17.5) Hematocrit 36.0% (39.0-53.0) 37.4% (39.0-53.0) Mean Corpuscular Volume 91fL (79-100) 90fL (79-100) Mean Corpuscular Hemoglobin 31pg (25-35) 31pg (25-35) Mean Corpuscular Hemoglobin Concent 34g/dL (31-37) 34g/dL (31-37) Red Cell Distribution Width 17.1% (11.5-14.5) 17.6% (11.5-14.5) Platelet Count 250x10^3/uL (140-400) 275x10^3/uL (140-400) Neutrophils (%) (Auto) 34% (31-73) 42% (31-73) Lymphocytes (%) (Auto) 56% (24-48) 46% (24-48) Monocytes (%) (Auto) 7% (0-9) 9% (0-9) Eosinophils (%) (Auto) 1% (0-3) 3% (0-3) Basophils (%) (Auto) 2% (0-3) 1% (0-3) Neutrophils # (Auto) 3.5x10^3uL (1.8-7.7) 4.9x10^3uL (1.8-7.7) Lymphocytes # (Auto) 5.8x10^3/uL (1.0-4.8) 5.4x10^3/uL (1.0-4.8) Monocytes # (Auto) 0.7x10^3/uL (0.0-1.1) 1.0x10^3/uL (0.0-1.1) Eosinophils # (Auto) 0.1x10^3/uL (0.0-0.7) 0.3x10^3/uL (0.0-0.7) Basophils # (Auto) 0.2x10^3/uL (0.0-0.2) 0.1x10^3/uL (0.0-0.2) Segmented Neutrophils % 68% (35-66) 70% (35-66) Lymphocytes % 18% (24-48) 21% (24-48) Monocytes % 12% (0-10) 8% (0-10) Eosinophils % 1% (0-5) 1% (0-5) Basophils % 1% (0-3) Platelet Estimate Adequate (ADEQUATE) Adequate (ADEQUATE) Large Platelets Present Present Anisocytosis Slight Slight Target Cells Present Present Sodium Level 139mmol/L (136-145) 136mmol/L (136-145) Potassium Level 3.6mmol/L (3.5-5.1) 3.6mmol/L (3.5-5.1) Chloride Level 103mmol/L (98-107) 102mmol/L (98-107) Carbon Dioxide Level 24mmol/L (21-32) 23mmol/L (21-32) Anion Gap 12 (6-14) 11 (6-14) Blood Urea Nitrogen 15mg/dL (8-26) 12mg/dL (8-26) Creatinine 1.0mg/dL (0.7-1.3) 0.9mg/dL (0.7-1.3) Estimated GFR (Cockcroft-Gault) 74.1 83.7 BUN/Creatinine Ratio 15 (6-20) 13 (6-20) Glucose Level 90mg/dL (70-99) 95mg/dL (70-99) Calcium Level 9.3mg/dL (8.5-10.1) 9.1mg/dL (8.5-10.1) Total Bilirubin 22.9mg/dL (0.2-1.0) 23.6mg/dL (0.2-1.0) Aspartate Amino Transf (AST/SGOT) 61U/L (15-37) 60U/L (15-37) Alanine Aminotransferase (ALT/SGPT) 63U/L (16-63) 59U/L (16-63) Alkaline Phosphatase 208U/L (46-116) 211U/L (46-116) Total Protein 6.8g/dL (6.4-8.2) 6.7g/dL (6.4-8.2) Albumin 2.6g/dL (3.4-5.0) 2.5g/dL (3.4-5.0) Albumin/Globulin Ratio 0.6 (1.0-1.7) 0.6 (1.0-1.7) Laboratory Tests Test 12/17/16 04:20 White Blood Count 11.7x10^3/uL (4.0-11.0) Red Blood Count 4.15x10^6/uL (4.30-5.70) Hemoglobin 12.9g/dL (13.0-17.5) Hematocrit 37.4% (39.0-53.0) Mean Corpuscular Volume 90fL (79-100) Mean Corpuscular Hemoglobin 31pg (25-35) Mean Corpuscular Hemoglobin Concent 34g/dL (31-37) Red Cell Distribution Width 17.6% (11.5-14.5) Platelet Count 275x10^3/uL (140-400) Neutrophils (%) (Auto) 42% (31-73) Lymphocytes (%) (Auto) 46% (24-48) Monocytes (%) (Auto) 9% (0-9) Eosinophils (%) (Auto) 3% (0-3) Basophils (%) (Auto) 1% (0-3) Neutrophils # (Auto) 4.9x10^3uL (1.8-7.7) Lymphocytes # (Auto) 5.4x10^3/uL (1.0-4.8) Monocytes # (Auto) 1.0x10^3/uL (0.0-1.1) Eosinophils # (Auto) 0.3x10^3/uL (0.0-0.7) Basophils # (Auto) 0.1x10^3/uL (0.0-0.2) Segmented Neutrophils % 70% (35-66) Lymphocytes % 21% (24-48) Monocytes % 8% (0-10) Eosinophils % 1% (0-5) Platelet Estimate Adequate (ADEQUATE) Large Platelets Present Anisocytosis Slight Target Cells Present Sodium Level 136mmol/L (136-145) Potassium Level 3.6mmol/L (3.5-5.1) Chloride Level 102mmol/L (98-107) Carbon Dioxide Level 23mmol/L (21-32) Anion Gap 11 (6-14) Blood Urea Nitrogen 12mg/dL (8-26) Creatinine 0.9mg/dL (0.7-1.3) Estimated GFR (Cockcroft-Gault) 83.7 BUN/Creatinine Ratio 13 (6-20) Glucose Level 95mg/dL (70-99) Calcium Level 9.1mg/dL (8.5-10.1) Total Bilirubin 23.6mg/dL (0.2-1.0) Aspartate Amino Transf (AST/SGOT) 60U/L (15-37) Alanine Aminotransferase (ALT/SGPT) 59U/L (16-63) Alkaline Phosphatase 211U/L (46-116) Total Protein 6.7g/dL (6.4-8.2) Albumin 2.5g/dL (3.4-5.0) Albumin/Globulin Ratio 0.6 (1.0-1.7) Medications Active Scripts Medications Dose Route/Sig Days Date Category Aspirin 81 Mg Tab.chew 81 Mg PO DAILY 12/13/16 Reported Fenofibrate (Fenofibrate Nanocrystallized) 48 Mg Tablet 48 Mg PO DAILY 12/13/16 Reported Apriso (Mesalamine) 0.375 Gm Cap.er.24h 4 Cap PO DAILY 12/13/16 Reported Omeprazole 20 Mg Capsule.dr 20 Mg PO DAILY06 12/13/16 Reported Azithromycin Tablet (Azithromycin) 250 Mg Tablet 250 Mg PO DAILY 12/13/16 Reported Prometh-Codein 6.25-10 mg/5 ml (Promethazine HCl/Codeine) 5 Ml Syrup 5 Ml PO TID 12/13/[address] reviewed. No acute finding apparent in the chest. 2 soft tissue pulmonary nodules in the right lower lobe each measuring approximately 8 to 9 mm. Both benign and malignant disease could account for the findings. Impression . 1. 6 x 4.7 centimeter ill-defined right hepatic lobe mass adjacent to the clifford. 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 2. Right lower lobe pulmonary nodules. I suspect these are metastatic disease, 3. Hyperbilirubinemia secondary to hepatic mass. 4. Ex-smoker. 5. Dementia. 6. Hypercholesterolemia. Plan . Pt to transfer to I spoke with son if he does not transfer he will need a repeat CT in 2 months 1. Titrate FiO2 to keep O2 saturation 92%. 2. w/u of liver mass per GI 3. f/u ct chest in 2 months. 4. I will follow along with you. 5. i do recommend Pulmonary function test as OP 6. The findings and recommendations were discussed with the patient and his family in details EVA NUNEZ MD Dec 17, 2016 08:56
[2016-12-17] MEDS: PANTOPRAZOLE 40 MG TABLET. PO SCH (09:43)
[2016-12-17] MEDS: MESALAMINE 1.2 GM TABLET.DR PO SCH (09:43)
[2016-12-17] MEDS: PROMETH/CODEINE 6.25/10MG 5 ML SYRUP. PO SCH ×3 (09:44→20:18)
--- NOTE | 2016-12-17 10:20 | PDOC ---
PROGRESS NOTES Subjective Subjective waiting to be transferred to Objective Objective Vital Signs Date Time Temp Pulse Resp B/P Pulse Ox O2 Delivery O2 Flow Rate FiO2 12/17/16 08:10 Room Air 12/17/16 08:07 97 12/17/16 07:00 98.1 74 18 113/73 98.1 Intake and Output 12/17/16 07:00 Intake Total 120 ml Balance 120 ml Intake Oral 120 ml # Voids 4 Physical Exam Abdomen: Normal bowel sounds, Soft Heart: Regular rate, Normal S1 Extremities: No clubbing General: Alert, No acute distress Lungs: Clear to auscultation MUSCULOSKELETAL: No deformity Neck: Supple Neuro: Normal speech Psych/Mental Status: Mental status NL Skin: No breakdown Diagnosis Problem List Problems Medical Problems: (1) Jaundice Status: Acute (2) Liver tumor Status: Acute Assessment Assessment IMP:Obstructive Jaundice 1. mass R lobe liver with intrahepatic duct dilation 2. R lower lobe pulmonary nodule 3. HTN 4. early Alzheimer 5. h/o irritable bowel disease 6. DM II non insulin controlled 7. metabolic syndrome X 8. h/o ulcerative colitis 9. moderate chronic PCL malnutrition 10. HH large 11. CKD III PLAN:plans to transfer to for specialist treatment MRCP done 6 cm mass liver. possible cholangiocarcinoma. possible Lung mets lft still high.bilirubin 25 spoke with oncology GI consulted. LFTs 12/05/15 WNL AP 97, ALT 39, AST 36 T bili 0.9 12/12/16 AP 229 12/13 264 ALT 77 75 AST 71 66 T. Bili 23.3 21.1 D. Bili 14.4 MRCP ordered.May need ERCP. Acute bronchitis 12/12 WBC 14.3 duoneb nodule RLL--consult pulmonary Stop Zithromax Start Rocephin 1gm IV daily for additional 3 days (has taken 2 days Zithromax) CKD III 12/04 BUN/Cr 1.0/0.9 12/12 BUN/Cr 17/1.36 Admit BUN 18 Cr 1.0 DVT/GI prophylaxis SCD/Cale PPI Condition, treatment, options were extensively discussed with the patient and his family. Hypokalemia- replaced. Problems: Plan Plan of Care Problems Medical Problems: (1) Jaundice Status: Acute (2) Liver tumor Status: Acute Comment Review of Relevant I have reviewed the following items isaac (where applicable) has been applied. Labs Laboratory Tests Test 3/28/17 04:20 White Blood Count 11.7x10^3/uL (4.0-11.0) Red Blood Count 4.15x10^6/uL (4.30-5.70) Hemoglobin 12.9g/dL (13.0-17.5) Hematocrit 37.4% (39.0-53.0) Mean Corpuscular Volume 90fL (79-100) Mean Corpuscular Hemoglobin 31pg (25-35) Mean Corpuscular Hemoglobin Concent 34g/dL (31-37) Red Cell Distribution Width 17.6% (11.5-14.5) Platelet Count 275x10^3/uL (140-400) Neutrophils (%) (Auto) 42% (31-73) Lymphocytes (%) (Auto) 46% (24-48) Monocytes (%) (Auto) 9% (0-9) Eosinophils (%) (Auto) 3% (0-3) Basophils (%) (Auto) 1% (0-3) Neutrophils # (Auto) 4.9x10^3uL (1.8-7.7) Lymphocytes # (Auto) 5.4x10^3/uL (1.0-4.8) Monocytes # (Auto) 1.0x10^3/uL (0.0-1.1) Eosinophils # (Auto) 0.3x10^3/uL (0.0-0.7) Basophils # (Auto) 0.1x10^3/uL (0.0-0.2) Segmented Neutrophils % 70% (35-66) Lymphocytes % 21% (24-48) Monocytes % 8% (0-10) Eosinophils % 1% (0-5) Platelet Estimate Adequate (ADEQUATE) Large Platelets Present Anisocytosis Slight Target Cells Present Sodium Level 136mmol/L (136-145) Potassium Level 3.6mmol/L (3.5-5.1) Chloride Level 102mmol/L (98-107) Carbon Dioxide Level 23mmol/L (21-32) Anion Gap 11 (6-14) Blood Urea Nitrogen 12mg/dL (8-26) Creatinine 0.9mg/dL (0.7-1.3) Estimated GFR (Cockcroft-Gault) 83.7 BUN/Creatinine Ratio 13 (6-20) Glucose Level 95mg/dL (70-99) Calcium Level 9.1mg/dL (8.5-10.1) Total Bilirubin 23.6mg/dL (0.2-1.0) Aspartate Amino Transf (AST/SGOT) 60U/L (15-37) Alanine Aminotransferase (ALT/SGPT) 59U/L (16-63) Alkaline Phosphatase 211U/L (46-116) Total Protein 6.7g/dL (6.4-8.2) Albumin 2.5g/dL (3.4-5.0) Albumin/Globulin Ratio 0.6 (1.0-1.7) Vitals/I & O Vital Sign - Last 24 Hours 12/16/16 12/16/16 12/16/16 12/16/16 11:00 11:00 12:30 15:00 Temp 98.2 98.2 98.0 98.2 98.2 98.0 Pulse 83 83 82 Resp 20 20 20 B/P 122/69 122/69 119/73 Pulse Ox 98 98 97 97 O2 Delivery Room Air Room Air Room Air 12/16/16 12/16/16 12/16/16 12/16/16 15:55 19:00 19:35 20:15 Temp 97.6 97.6 Pulse 74 Resp 18 B/P 140/78 Pulse Ox 97 98 O2 Delivery Room Air Room Air Room Air Room Air 12/16/16 12/17/16 12/17/16 12/17/16 23:04 03:02 07:00 08:07 Temp 98.1 98.5 98.1 98.1 98.5 98.1 Pulse 81 73 74 Resp 18 18 18 B/P 121/70 124/72 113/73 Pulse Ox 97 95 95 97 O2 Delivery Room Air Room Air Room Air Room Air 12/17/16 08:10 O2 Delivery Room Air Intake and Output 12/16/16 12/16/16 12/17/16 15:00 23:00 07:00 Intake Total 120 ml Balance 120 ml KOFFI MOORE MD Dec 17, 2016 10:20
[2016-12-17 11:00] VITALS: BP 124/73
--- NOTE | 2016-12-17 11:18 | PDOC ---
Subjective: Subjective: Awaiting transfer to . Objective: Objective: Per Dr. Lott - transferring today. Vital Signs: Vital Signs Date Time Temp Pulse Resp B/P Pulse Ox O2 Delivery O2 Flow Rate FiO2 12/17/16 08:10 Room Air 12/17/16 08:07 97 12/17/16 07:00 98.1 74 18 113/73 98.1 Labs: Laboratory Tests Test 12/17/16 04:20 White Blood Count 11.7x10^3/uL Red Blood Count 4.15x10^6/uL Hemoglobin 12.9g/dL Hematocrit 37.4% Mean Corpuscular Volume 90fL Mean Corpuscular Hemoglobin 31pg Mean Corpuscular Hemoglobin Concent 34g/dL Red Cell Distribution Width 17.6% Platelet Count 275x10^3/uL Neutrophils (%) (Auto) 42% Lymphocytes (%) (Auto) 46% Monocytes (%) (Auto) 9% Eosinophils (%) (Auto) 3% Basophils (%) (Auto) 1% Neutrophils # (Auto) 4.9x10^3uL Lymphocytes # (Auto) 5.4x10^3/uL Monocytes # (Auto) 1.0x10^3/uL Eosinophils # (Auto) 0.3x10^3/uL Basophils # (Auto) 0.1x10^3/uL Segmented Neutrophils % 70% Lymphocytes % 21% Monocytes % 8% Eosinophils % 1% Platelet Estimate Adequate Large Platelets Present Anisocytosis Slight Target Cells Present Sodium Level 136mmol/L Potassium Level 3.6mmol/L Chloride Level 102mmol/L Carbon Dioxide Level 23mmol/L Anion Gap 11 Blood Urea Nitrogen 12mg/dL Creatinine 0.9mg/dL Estimated GFR (Cockcroft-Gault) 83.7 BUN/Creatinine Ratio 13 Glucose Level 95mg/dL Calcium Level 9.1mg/dL Total Bilirubin 23.6mg/dL Aspartate Amino Transf (AST/SGOT) 60U/L Alanine Aminotransferase (ALT/SGPT) 59U/L Alkaline Phosphatase 211U/L Total Protein 6.7g/dL Albumin 2.5g/dL Albumin/Globulin Ratio 0.6 PE: GEN: NAD, jaundiced ABD: S/ND/NT NEURO/PSYCH: A & O 3 A/P: Liver mass, jaundice, elevated LFTs -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 WALTER ATKINS Dec 17, 2016 11:18
--- NOTE | 2016-12-17 11:36 | PDOC ---
PROGRESS NOTES Subjective Subjective c/c - f/u of Liver mass Objective Objective Vital Signs Date Time Temp Pulse Resp B/P Pulse Ox O2 Delivery O2 Flow Rate FiO2 12/17/16 08:10 Room Air 12/17/16 08:07 97 12/17/16 07:00 98.1 74 18 113/73 98.1 Intake and Output 12/17/16 07:00 Intake Total 120 ml Balance 120 ml Intake Oral 120 ml # Voids 4 Physical Exam Heart: Normal S1, Normal S2 General: Alert, Oriented X3 Lungs: Clear to auscultation Neuro: Normal speech Psych/Mental Status: Mental status NL Assessment Assessment Problems Medical Problems: (1) Jaundice Status: Acute (2) Liver tumor Status: Acute IMPRESSION AND PLAN: 1. Liver mass involving the right hepatic lobe with severe strictures of the right and left intrahepatic biliary tree is concerning for cholangiocarcinoma. There is also evidence of 1.4 cm right lower lobe lung nodules, which is concerning for metastatic disease. I reviewed the MRI findings with the patient and family and also explained the concern for cholangiocarcinoma and the concern for lung metastasis. I also explained the need for further evaluation with a biopsy. I also discussed the role of palliative chemotherapy after confirmation of diagnosis. I reviewed the films and discussed with instrumentation specialist, Dr. Hardeep Burris. Dr. Burris felt that the patient may need metal stents, which is not available here and he would recommend transferring to another institution such as for further management and a biopsy can be done at the same time. I discussed in detail with the patient and family, I discussed with Dr. Lott. 2. Ulcerative colitis. 3. Elevated liver function tests due to #1. Bili worse. Comment Review of Relevant I have reviewed the following items isaac (where applicable) has been applied. Labs Laboratory Tests Test 12/16/16 03:40 12/17/16 04:20 White Blood Count 10.2x10^3/uL (4.0-11.0) 11.7x10^3/uL (4.0-11.0) Red Blood Count 3.96x10^6/uL (4.30-5.70) 4.15x10^6/uL (4.30-5.70) Hemoglobin 12.4g/dL (13.0-17.5) 12.9g/dL (13.0-17.5) Hematocrit 36.0% (39.0-53.0) 37.4% (39.0-53.0) Mean Corpuscular Volume 91fL (79-100) 90fL (79-100) Mean Corpuscular Hemoglobin 31pg (25-35) 31pg (25-35) Mean Corpuscular Hemoglobin Concent 34g/dL (31-37) 34g/dL (31-37) Red Cell Distribution Width 17.1% (11.5-14.5) 17.6% (11.5-14.5) Platelet Count 250x10^3/uL (140-400) 275x10^3/uL (140-400) Neutrophils (%) (Auto) 34% (31-73) 42% (31-73) Lymphocytes (%) (Auto) 56% (24-48) 46% (24-48) Monocytes (%) (Auto) 7% (0-9) 9% (0-9) Eosinophils (%) (Auto) 1% (0-3) 3% (0-3) Basophils (%) (Auto) 2% (0-3) 1% (0-3) Neutrophils # (Auto) 3.5x10^3uL (1.8-7.7) 4.9x10^3uL (1.8-7.7) Lymphocytes # (Auto) 5.8x10^3/uL (1.0-4.8) 5.4x10^3/uL (1.0-4.8) Monocytes # (Auto) 0.7x10^3/uL (0.0-1.1) 1.0x10^3/uL (0.0-1.1) Eosinophils # (Auto) 0.1x10^3/uL (0.0-0.7) 0.3x10^3/uL (0.0-0.7) Basophils # (Auto) 0.2x10^3/uL (0.0-0.2) 0.1x10^3/uL (0.0-0.2) Segmented Neutrophils % 68% (35-66) 70% (35-66) Lymphocytes % 18% (24-48) 21% (24-48) Monocytes % 12% (0-10) 8% (0-10) Eosinophils % 1% (0-5) 1% (0-5) Basophils % 1% (0-3) Platelet Estimate Adequate (ADEQUATE) Adequate (ADEQUATE) Large Platelets Present Present Anisocytosis Slight Slight Target Cells Present Present Sodium Level 139mmol/L (136-145) 136mmol/L (136-145) Potassium Level 3.6mmol/L (3.5-5.1) 3.6mmol/L (3.5-5.1) Chloride Level 103mmol/L (98-107) 102mmol/L (98-107) Carbon Dioxide Level 24mmol/L (21-32) 23mmol/L (21-32) Anion Gap 12 (6-14) 11 (6-14) Blood Urea Nitrogen 15mg/dL (8-26) 12mg/dL (8-26) Creatinine 1.0mg/dL (0.7-1.3) 0.9mg/dL (0.7-1.3) Estimated GFR (Cockcroft-Gault) 74.1 83.7 BUN/Creatinine Ratio 15 (6-20) 13 (6-20) Glucose Level 90mg/dL (70-99) 95mg/dL (70-99) Calcium Level 9.3mg/dL (8.5-10.1) 9.1mg/dL (8.5-10.1) Total Bilirubin 22.9mg/dL (0.2-1.0) 23.6mg/dL (0.2-1.0) Aspartate Amino Transf (AST/SGOT) 61U/L (15-37) 60U/L (15-37) Alanine Aminotransferase (ALT/SGPT) 63U/L (16-63) 59U/L (16-63) Alkaline Phosphatase 208U/L (46-116) 211U/L (46-116) Total Protein 6.8g/dL (6.4-8.2) 6.7g/dL (6.4-8.2) Albumin 2.6g/dL (3.4-5.0) 2.5g/dL (3.4-5.0) Albumin/Globulin Ratio 0.6 (1.0-1.7) 0.6 (1.0-1.7) Laboratory Tests Test 12/17/16 04:20 White Blood Count 11.7x10^3/uL (4.0-11.0) Red Blood Count 4.15x10^6/uL (4.30-5.70) Hemoglobin 12.9g/dL (13.0-17.5) Hematocrit 37.4% (39.0-53.0) Mean Corpuscular Volume 90fL (79-100) Mean Corpuscular Hemoglobin 31pg (25-35) Mean Corpuscular Hemoglobin Concent 34g/dL (31-37) Red Cell Distribution Width 17.6% (11.5-14.5) Platelet Count 275x10^3/uL (140-400) Neutrophils (%) (Auto) 42% (31-73) Lymphocytes (%) (Auto) 46% (24-48) Monocytes (%) (Auto) 9% (0-9) Eosinophils (%) (Auto) 3% (0-3) Basophils (%) (Auto) 1% (0-3) Neutrophils # (Auto) 4.9x10^3uL (1.8-7.7) Lymphocytes # (Auto) 5.4x10^3/uL (1.0-4.8) Monocytes # (Auto) 1.0x10^3/uL (0.0-1.1) Eosinophils # (Auto) 0.3x10^3/uL (0.0-0.7) Basophils # (Auto) 0.1x10^3/uL (0.0-0.2) Segmented Neutrophils % 70% (35-66) Lymphocytes % 21% (24-48) Monocytes % 8% (0-10) Eosinophils % 1% (0-5) Platelet Estimate Adequate (ADEQUATE) Large Platelets Present Anisocytosis Slight Target Cells Present Sodium Level 136mmol/L (136-145) Potassium Level 3.6mmol/L (3.5-5.1) Chloride Level 102mmol/L (98-107) Carbon Dioxide Level 23mmol/L (21-32) Anion Gap 11 (6-14) Blood Urea Nitrogen 12mg/dL (8-26) Creatinine 0.9mg/dL (0.7-1.3) Estimated GFR (Cockcroft-Gault) 83.7 BUN/Creatinine Ratio 13 (6-20) Glucose Level 95mg/dL (70-99) Calcium Level 9.1mg/dL (8.5-10.1) Total Bilirubin 23.6mg/dL (0.2-1.0) Aspartate Amino Transf (AST/SGOT) 60U/L (15-37) Alanine Aminotransferase (ALT/SGPT) 59U/L (16-63) Alkaline Phosphatase 211U/L (46-116) Total Protein 6.7g/dL (6.4-8.2) Albumin 2.5g/dL (3.4-5.0) Albumin/Globulin Ratio 0.6 (1.0-1.7) Medications Current Medications Iohexol (Omnipaque 300 Mg/ml) 60 ml 1X ONCE IV Last administered on 12/13/16 15:35; Start 12/13/16 at 15:15; Stop 12/13/16 at 15:16; Status DC Info (Do NOT chart on this entry -- for MONITORING) 1 each PRN DAILY PRN MC SEE COMMENTS; Start 12/13/16 at 15:15; Stop 12/15/16 at 15:14; Status DC Ondansetron HCl (Zofran) 4 mg PRN Q8HRS PRN IV NAUSEA/VOMITING; Start 12/13/16 at 18:30; Stop 12/14/16 at 18:29; Status DC Fentanyl Citrate (Fentanyl 2ml Vial) 50 mcg PRN Q2HR PRN IV PAIN; Start at 18:30; Stop 12/14/16 at 06:16; Status DC Acetaminophen (Tylenol) 650 mg PRN Q4HRS PRN PO FEVER; Start 12/13/16 at 18:30 ; Stop 12/14/16 at 06:16; Status DC Aspirin (Children'S Aspirin) 81 mg DAILY PO Last administered on 12/16/16 09: 00; Start 12/14/16 at 09:00; Stop 12/16/16 at 09:50; Status DC Mesalamine (Lialda) 1.2 gm DAILY PO Last administered on 12/17/16 09:43; Start 12/14/16 at 09:00 Pantoprazole Sodium (Protonix) 40 mg DAILYAC PO Last administered on 12/17/16 09:43; Start 12/14/16 at 07:30 Albuterol/ Ipratropium (Duoneb) 3 ml RTQID NEB Last administered on 12/17/16 08:06; Start 12/14/16 at 08:00 Promethazine HCl/ Codeine (Phenergan With Codeine) 5 ml PRN Q6HRS PRN PO COUGH ; Start 12/14/16 at 06:00; Stop 12/14/16 at 06:16; Status DC Fentanyl Citrate (Fentanyl 2ml Vial) 50 mcg PRN Q2HR PRN IV PAIN; Start at 06:15 Acetaminophen 650 mg 650 mg PRN Q6HRS PRN PO FEVER; Start 12/14/16 at 06:15; Stop 12/16/16 at 09:50; Status DC Ceftriaxone Sodium/Sodium Chloride (Rocephin/Iv Sodium Chloride 0.9% 50ml) 50 ml @ 100 mls/hr Q24H IV Last administered on 12/17/16 07:13; Start 12/14/16 at 06:30 Promethazine HCl/ Codeine (Phenergan With Codeine) 5 ml TID PO Last administered on 12/17/16 09:44; Start 12/14/16 at 15:30 Potassium Chloride (Klor-Con) 20 meq 1X ONCE PO Last administered on 15:24; Start 12/15/16 at 08:45; Stop 12/15/16 at 08:46; Status DC Gadobutrol (Gadavist) 9 mmol 1X ONCE IV Last administered on 12/15/16 14:00; Start 12/15/16 at 14:00; Stop 12/15/16 at 14:01; Status DC Potassium Chloride (Klor-Con) 20 meq 1X ONCE PO ; Start 12/15/16 at 15:30; Stop 12/15/16 at 15:31; Status DC Albuterol/ Ipratropium (Duoneb) 3 ml 1X ONCE NEB ; Start 12/16/16 at 01:30; Stop 12/16/16 at 01:30; Status DC Albuterol/ Ipratropium (Duoneb) 3 ml RTQID NEB ; Start 12/16/16 at 08:00; Stop 12/16/16 at 08:00; Status DC Throat Lozenges (Cepacol Sore Throat Lozenge) 1 damaris PRN Q2HRS PRN PO SORE THROAT; Start 12/16/16 at 03:00 Active Scripts Active Reported Aspirin 81 Mg Tab.chew 81 Mg PO DAILY Fenofibrate (Fenofibrate Nanocrystallized) 48 Mg Tablet 48 Mg PO DAILY Apriso (Mesalamine) 0.375 Gm Cap.er.24h 4 Cap PO DAILY Omeprazole 20 Mg Capsule.dr 20 Mg PO DAILY06 Azithromycin Tablet (Azithromycin) 250 Mg Tablet 250 Mg PO DAILY Prometh-Codein 6.25-10 mg/5 ml (Promethazine HCl/Codeine) 5 Ml Syrup 5 Ml PO TID Vitals/I & O Vital Sign - Last 24 Hours 12/16/16 12/16/16 12/16/16 12/16/16 12:30 15:00 15:55 19:00 Temp 98.0 97.6 98.0 97.6 Pulse 82 74 Resp 20 18 B/P 119/73 140/78 Pulse Ox 97 97 97 98 O2 Delivery Room Air Room Air Room Air Room Air 12/16/16 12/16/16 12/16/16 12/17/16 19:35 20:15 23:04 03:02 Temp 98.1 98.5 98.1 98.5 Pulse 81 73 Resp 18 18 B/P 121/70 124/72 Pulse Ox 97 95 O2 Delivery Room Air Room Air Room Air Room Air 12/17/16 12/17/16 12/17/16 07:00 08:07 08:10 Temp 98.1 98.1 Pulse 74 Resp 18 B/P 113/73 Pulse Ox 95 97 O2 Delivery Room Air Room Air Room Air Intake and Output 12/16/16 12/16/16 12/17/16 15:00 23:00 07:00 Intake Total 120 ml Balance 120 ml ANNIE GRECO MD Dec 17, 2016 11:36
[2016-12-17 15:00] VITALS: BP 127/78
[2016-12-17 19:00] VITALS: BP 133/79
[2016-12-17 23:00] VITALS: BP 127/77
[2016-12-18 05:36] LABS: ALBUMIN 2.3 g/dL (3.4-5.0); ALBUMIN/GLOBULIN RATIO 0.5 (1.0-1.7); CREATININE 0.8 mg/dL (0.7-1.3); GFR 95.8; POTASSIUM 4.4 mmol/L (3.5-5.1); TOTAL PROTEIN 6.7 g/dL (6.4-8.2)
[2016-12-18 05:59] LABS: TOTAL BILIRUBIN 24.2 mg/dL (0.2-1.0)
[2016-12-18 06:47] LABS: BASO % 1 % (0-3); EOS % 3 % (0-3); HEMATOCRIT 37.9 % (39.0-53.0); HEMOGLOBIN 13.3 g/dL (13.0-17.5); LYMPH % 50 % (24-48); MEAN CORPUSCULAR HEMOGLOBIN 31 pg (25-35); MEAN CORPUSCULAR HGB CONC 35 g/dL (31-37); MEAN CORPUSCULAR VOLUME 90 fL (79-100); MONO % 9 % (0-9); NEUT % 38 % (31-73); PLATELET COUNT 296 x10^3/uL (140-400); RED BLOOD COUNT 4.22 x10^6/uL (4.30-5.70); RED CELL DISTRIBUTION WIDTH 17.7 % (11.5-14.5); WHITE BLOOD COUNT 10.1 x10^3/uL (4.0-11.0)
[2016-12-18 06:48] LABS: BASO # 0.1 x10^3/uL (0.0-0.2)
[2016-12-18 07:00] VITALS: BP 125/72
[2016-12-18 07:22] LABS: % EOS 7 % (0-5); PLT ESTIMATE ADEQUATE (ADEQUATE); TARGET CELLS MANY
[2016-12-18] MEDS: CEFTRIAXONE SODIUM 1 GM in IV NORMAL SALINE 50ML 50 ML IV SCH (07:23)
[2016-12-18] MEDS: PANTOPRAZOLE 40 MG TABLET. PO SCH (07:23)
[2016-12-18] MEDS: IPRATRPIUM/ALBUTEROL 0.5/2.5MG 3 ML NEBU. NEB SCH ×4 (08:26→19:27)
--- NOTE | 2016-12-18 08:46 | PDOC ---
PULMONARY PROGRESS NOTES Subjective not more soa Vitals Vital Signs Date Time Temp Pulse Resp B/P Pulse Ox O2 Delivery O2 Flow Rate FiO2 12/18/16 08:27 99 Room Air 12/18/16 07:00 97.0 66 18 125/72 97.0 Comments ros as mentioned as above other sys otherwise neg ROS: No Nausea, No Chest Pain General: Alert, Oriented X4 HEENT: Other (nc at perrl) Lungs: Clear Cardiovascular: S1, S2 Abdomen: Soft, Non-tender Neuro Exam: Alert Extremities: No Edema Skin: Other (jaundice) Labs Laboratory Tests Test 12/17/16 04:20 12/18/16 04:45 White Blood Count 11.7x10^3/uL (4.0-11.0) 10.1x10^3/uL (4.0-11.0) Red Blood Count 4.15x10^6/uL (4.30-5.70) 4.22x10^6/uL (4.30-5.70) Hemoglobin 12.9g/dL (13.0-17.5) 13.3g/dL (13.0-17.5) Hematocrit 37.4% (39.0-53.0) 37.9% (39.0-53.0) Mean Corpuscular Volume 90fL (79-100) 90fL (79-100) Mean Corpuscular Hemoglobin 31pg (25-35) 31pg (25-35) Mean Corpuscular Hemoglobin Concent 34g/dL (31-37) 35g/dL (31-37) Red Cell Distribution Width 17.6% (11.5-14.5) 17.7% (11.5-14.5) Platelet Count 275x10^3/uL (140-400) 296x10^3/uL (140-400) Neutrophils (%) (Auto) 42% (31-73) 38% (31-73) Lymphocytes (%) (Auto) 46% (24-48) 50% (24-48) Monocytes (%) (Auto) 9% (0-9) 9% (0-9) Eosinophils (%) (Auto) 3% (0-3) 3% (0-3) Basophils (%) (Auto) 1% (0-3) 1% (0-3) Neutrophils # (Auto) 4.9x10^3uL (1.8-7.7) 3.9x10^3uL (1.8-7.7) Lymphocytes # (Auto) 5.4x10^3/uL (1.0-4.8) 5.0x10^3/uL (1.0-4.8) Monocytes # (Auto) 1.0x10^3/uL (0.0-1.1) 0.9x10^3/uL (0.0-1.1) Eosinophils # (Auto) 0.3x10^3/uL (0.0-0.7) 0.3x10^3/uL (0.0-0.7) Basophils # (Auto) 0.1x10^3/uL (0.0-0.2) 0.1x10^3/uL (0.0-0.2) Segmented Neutrophils % 70% (35-66) 54% (35-66) Lymphocytes % 21% (24-48) 28% (24-48) Monocytes % 8% (0-10) 7% (0-10) Eosinophils % 1% (0-5) 7% (0-5) Platelet Estimate Adequate (ADEQUATE) Adequate (ADEQUATE) Large Platelets Present Anisocytosis Slight Target Cells Present Many Sodium Level 136mmol/L (136-145) 137mmol/L (136-145) Potassium Level 3.6mmol/L (3.5-5.1) 4.4mmol/L (3.5-5.1) Chloride Level 102mmol/L (98-107) 102mmol/L (98-107) Carbon Dioxide Level 23mmol/L (21-32) 25mmol/L (21-32) Anion Gap 11 (6-14) 10 (6-14) Blood Urea Nitrogen 12mg/dL (8-26) 13mg/dL (8-26) Creatinine 0.9mg/dL (0.7-1.3) 0.8mg/dL (0.7-1.3) Estimated GFR (Cockcroft-Gault) 83.7 95.8 BUN/Creatinine Ratio 13 (6-20) 16 (6-20) Glucose Level 95mg/dL (70-99) 93mg/dL (70-99) Calcium Level 9.1mg/dL (8.5-10.1) 9.0mg/dL (8.5-10.1) Total Bilirubin 23.6mg/dL (0.2-1.0) 24.2mg/dL (0.2-1.0) Aspartate Amino Transf (AST/SGOT) 60U/L (15-37) 67U/L (15-37) Alanine Aminotransferase (ALT/SGPT) 59U/L (16-63) 57U/L (16-63) Alkaline Phosphatase 211U/L (46-116) 216U/L (46-116) Total Protein 6.7g/dL (6.4-8.2) 6.7g/dL (6.4-8.2) Albumin 2.5g/dL (3.4-5.0) 2.3g/dL (3.4-5.0) Albumin/Globulin Ratio 0.6 (1.0-1.7) 0.5 (1.0-1.7) Band Neutrophils % 4% (0-9) Laboratory Tests Test 12/18/16 04:45 White Blood Count 10.1x10^3/uL (4.0-11.0) Red Blood Count 4.22x10^6/uL (4.30-5.70) Hemoglobin 13.3g/dL (13.0-17.5) Hematocrit 37.9% (39.0-53.0) Mean Corpuscular Volume 90fL (79-100) Mean Corpuscular Hemoglobin 31pg (25-35) Mean Corpuscular Hemoglobin Concent 35g/dL (31-37) Red Cell Distribution Width 17.7% (11.5-14.5) Platelet Count 296x10^3/uL (140-400) Neutrophils (%) (Auto) 38% (31-73) Lymphocytes (%) (Auto) 50% (24-48) Monocytes (%) (Auto) 9% (0-9) Eosinophils (%) (Auto) 3% (0-3) Basophils (%) (Auto) 1% (0-3) Neutrophils # (Auto) 3.9x10^3uL (1.8-7.7) Lymphocytes # (Auto) 5.0x10^3/uL (1.0-4.8) Monocytes # (Auto) 0.9x10^3/uL (0.0-1.1) Eosinophils # (Auto) 0.3x10^3/uL (0.0-0.7) Basophils # (Auto) 0.1x10^3/uL (0.0-0.2) Segmented Neutrophils % 54% (35-66) Band Neutrophils % 4% (0-9) Lymphocytes % 28% (24-48) Monocytes % 7% (0-10) Eosinophils % 7% (0-5) Platelet Estimate Adequate (ADEQUATE) Target Cells Many Sodium Level 137mmol/L (136-145) Potassium Level 4.4mmol/L (3.5-5.1) Chloride Level 102mmol/L (98-107) Carbon Dioxide Level 25mmol/L (21-32) Anion Gap 10 (6-14) Blood Urea Nitrogen 13mg/dL (8-26) Creatinine 0.8mg/dL (0.7-1.3) Estimated GFR (Cockcroft-Gault) 95.8 BUN/Creatinine Ratio 16 (6-20) Glucose Level 93mg/dL (70-99) Calcium Level 9.0mg/dL (8.5-10.1) Total Bilirubin 24.2mg/dL (0.2-1.0) Aspartate Amino Transf (AST/SGOT) 67U/L (15-37) Alanine Aminotransferase (ALT/SGPT) 57U/L (16-63) Alkaline Phosphatase 216U/L (46-116) Total Protein 6.7g/dL (6.4-8.2) Albumin 2.3g/dL (3.4-5.0) Albumin/Globulin Ratio 0.5 (1.0-1.7) Medications Active Scripts Medications Dose Route/Sig Days Date Category Aspirin 81 Mg Tab.chew 81 Mg PO DAILY 12/13/16 Reported Fenofibrate (Fenofibrate Nanocrystallized) 48 Mg Tablet 48 Mg PO DAILY 12/13/16 Reported Apriso (Mesalamine) 0.375 Gm Cap.er.24h 4 Cap PO DAILY 12/13/16 Reported Omeprazole 20 Mg Capsule.dr 20 Mg PO DAILY06 12/13/16 Reported Azithromycin Tablet (Azithromycin) 250 Mg Tablet 250 Mg PO DAILY 12/13/16 Reported Prometh-Codein 6.25-10 mg/5 ml (Promethazine HCl/Codeine) 5 Ml Syrup 5 Ml PO TID 12/13/[address] reviewed. No acute finding apparent in the chest. 2 soft tissue pulmonary nodules in the right lower lobe each measuring approximately 8 to 9 mm. Both benign and malignant disease could account for the findings. Impression . 1. 6 x 4.7 centimeter ill-defined right hepatic lobe mass adjacent to the clifford. 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 2. Right lower lobe pulmonary nodules. I suspect these are metastatic disease, 3. Hyperbilirubinemia secondary to hepatic mass. 4. Ex-smoker. 5. Dementia. 6. Hypercholesterolemia. Plan . Pt to transfer to I spoke with son if he does not transfer he will need a repeat CT in 2 months 1. Titrate FiO2 to keep O2 saturation 92%. 2. w/u of liver mass per GI 3. f/u ct chest in 2 months. 4. I will follow along with you. 5. i do recommend Pulmonary function test as OP 6. The findings and recommendations were discussed with the patient and his family in details EVA NUNEZ MD Dec 18, 2016 08:46
[2016-12-18] MEDS: MESALAMINE 1.2 GM TABLET.DR PO SCH (09:43)
[2016-12-18] MEDS: PROMETH/CODEINE 6.25/10MG 5 ML SYRUP. PO SCH ×3 (09:43→20:58)
--- NOTE | 2016-12-18 10:08 | PDOC ---
G I PROGRESS NOTE Subjective No specific complaints. Awaiting transfer to when bed opens up. Physical Exam Lungs clear anteriorly. RRR Abdomen soft, not tender nor distended. Intensely icteric. Review of Relevant I have reviewed the following items isaac (where applicable) has been applied. Labs Laboratory Tests Test 12/17/16 04:20 12/18/16 04:45 White Blood Count 11.7x10^3/uL (4.0-11.0) 10.1x10^3/uL (4.0-11.0) Red Blood Count 4.15x10^6/uL (4.30-5.70) 4.22x10^6/uL (4.30-5.70) Hemoglobin 12.9g/dL (13.0-17.5) 13.3g/dL (13.0-17.5) Hematocrit 37.4% (39.0-53.0) 37.9% (39.0-53.0) Mean Corpuscular Volume 90fL (79-100) 90fL (79-100) Mean Corpuscular Hemoglobin 31pg (25-35) 31pg (25-35) Mean Corpuscular Hemoglobin Concent 34g/dL (31-37) 35g/dL (31-37) Red Cell Distribution Width 17.6% (11.5-14.5) 17.7% (11.5-14.5) Platelet Count 275x10^3/uL (140-400) 296x10^3/uL (140-400) Neutrophils (%) (Auto) 42% (31-73) 38% (31-73) Lymphocytes (%) (Auto) 46% (24-48) 50% (24-48) Monocytes (%) (Auto) 9% (0-9) 9% (0-9) Eosinophils (%) (Auto) 3% (0-3) 3% (0-3) Basophils (%) (Auto) 1% (0-3) 1% (0-3) Neutrophils # (Auto) 4.9x10^3uL (1.8-7.7) 3.9x10^3uL (1.8-7.7) Lymphocytes # (Auto) 5.4x10^3/uL (1.0-4.8) 5.0x10^3/uL (1.0-4.8) Monocytes # (Auto) 1.0x10^3/uL (0.0-1.1) 0.9x10^3/uL (0.0-1.1) Eosinophils # (Auto) 0.3x10^3/uL (0.0-0.7) 0.3x10^3/uL (0.0-0.7) Basophils # (Auto) 0.1x10^3/uL (0.0-0.2) 0.1x10^3/uL (0.0-0.2) Segmented Neutrophils % 70% (35-66) 54% (35-66) Lymphocytes % 21% (24-48) 28% (24-48) Monocytes % 8% (0-10) 7% (0-10) Eosinophils % 1% (0-5) 7% (0-5) Platelet Estimate Adequate (ADEQUATE) Adequate (ADEQUATE) Large Platelets Present Anisocytosis Slight Target Cells Present Many Sodium Level 136mmol/L (136-145) 137mmol/L (136-145) Potassium Level 3.6mmol/L (3.5-5.1) 4.4mmol/L (3.5-5.1) Chloride Level 102mmol/L (98-107) 102mmol/L (98-107) Carbon Dioxide Level 23mmol/L (21-32) 25mmol/L (21-32) Anion Gap 11 (6-14) 10 (6-14) Blood Urea Nitrogen 12mg/dL (8-26) 13mg/dL (8-26) Creatinine 0.9mg/dL (0.7-1.3) 0.8mg/dL (0.7-1.3) Estimated GFR (Cockcroft-Gault) 83.7 95.8 BUN/Creatinine Ratio 13 (6-20) 16 (6-20) Glucose Level 95mg/dL (70-99) 93mg/dL (70-99) Calcium Level 9.1mg/dL (8.5-10.1) 9.0mg/dL (8.5-10.1) Total Bilirubin 23.6mg/dL (0.2-1.0) 24.2mg/dL (0.2-1.0) Aspartate Amino Transf (AST/SGOT) 60U/L (15-37) 67U/L (15-37) Alanine Aminotransferase (ALT/SGPT) 59U/L (16-63) 57U/L (16-63) Alkaline Phosphatase 211U/L (46-116) 216U/L (46-116) Total Protein 6.7g/dL (6.4-8.2) 6.7g/dL (6.4-8.2) Albumin 2.5g/dL (3.4-5.0) 2.3g/dL (3.4-5.0) Albumin/Globulin Ratio 0.6 (1.0-1.7) 0.5 (1.0-1.7) Band Neutrophils % 4% (0-9) Laboratory Tests Test 12/18/16 04:45 White Blood Count 10.1x10^3/uL (4.0-11.0) Red Blood Count 4.22x10^6/uL (4.30-5.70) Hemoglobin 13.3g/dL (13.0-17.5) Hematocrit 37.9% (39.0-53.0) Mean Corpuscular Volume 90fL (79-100) Mean Corpuscular Hemoglobin 31pg (25-35) Mean Corpuscular Hemoglobin Concent 35g/dL (31-37) Red Cell Distribution Width 17.7% (11.5-14.5) Platelet Count 296x10^3/uL (140-400) Neutrophils (%) (Auto) 38% (31-73) Lymphocytes (%) (Auto) 50% (24-48) Monocytes (%) (Auto) 9% (0-9) Eosinophils (%) (Auto) 3% (0-3) Basophils (%) (Auto) 1% (0-3) Neutrophils # (Auto) 3.9x10^3uL (1.8-7.7) Lymphocytes # (Auto) 5.0x10^3/uL (1.0-4.8) Monocytes # (Auto) 0.9x10^3/uL (0.0-1.1) Eosinophils # (Auto) 0.3x10^3/uL (0.0-0.7) Basophils # (Auto) 0.1x10^3/uL (0.0-0.2) Segmented Neutrophils % 54% (35-66) Band Neutrophils % 4% (0-9) Lymphocytes % 28% (24-48) Monocytes % 7% (0-10) Eosinophils % 7% (0-5) Platelet Estimate Adequate (ADEQUATE) Target Cells Many Sodium Level 137mmol/L (136-145) Potassium Level 4.4mmol/L (3.5-5.1) Chloride Level 102mmol/L (98-107) Carbon Dioxide Level 25mmol/L (21-32) Anion Gap 10 (6-14) Blood Urea Nitrogen 13mg/dL (8-26) Creatinine 0.8mg/dL (0.7-1.3) Estimated GFR (Cockcroft-Gault) 95.8 BUN/Creatinine Ratio 16 (6-20) Glucose Level 93mg/dL (70-99) Calcium Level 9.0mg/dL (8.5-10.1) Total Bilirubin 24.2mg/dL (0.2-1.0) Aspartate Amino Transf (AST/SGOT) 67U/L (15-37) Alanine Aminotransferase (ALT/SGPT) 57U/L (16-63) Alkaline Phosphatase 216U/L (46-116) Total Protein 6.7g/dL (6.4-8.2) Albumin 2.3g/dL (3.4-5.0) Albumin/Globulin Ratio 0.5 (1.0-1.7) Medications Current Medications Iohexol (Omnipaque 300 Mg/ml) 60 ml 1X ONCE IV Last administered on 12/13/16t 15:35; Start 12/13/16 at 15:15; Stop 12/13/16 at 15:16; Status DC Info (Do NOT chart on this entry -- for MONITORING) 1 each PRN DAILY PRN MC SEE COMMENTS; Start 12/13/16 at 15:15; Stop 12/15/16 at 15:14; Status DC Ondansetron HCl (Zofran) 4 mg PRN Q8HRS PRN IV NAUSEA/VOMITING; Start 12/13/16 at 18:30; Stop 12/14/16 at 18:29; Status DC Fentanyl Citrate (Fentanyl 2ml Vial) 50 mcg PRN Q2HR PRN IV PAIN; Start at 18:30; Stop 12/14/16 at 06:16; Status DC Acetaminophen (Tylenol) 650 mg PRN Q4HRS PRN PO FEVER; Start 12/13/16 at 18:30 ; Stop 12/14/16 at 06:16; Status DC Aspirin (Children'S Aspirin) 81 mg DAILY PO Last administered on 12/16/16 09: 00; Start 12/14/16 at 09:00; Stop 12/16/16 at 09:50; Status DC Mesalamine (Lialda) 1.2 gm DAILY PO Last administered on 12/18/16 09:43; Start 12/14/16 at 09:00 Pantoprazole Sodium (Protonix) 40 mg DAILYAC PO Last administered on 12/18/16 07:23; Start 12/14/16 at 07:30 Albuterol/ Ipratropium (Duoneb) 3 ml RTQID NEB Last administered on 12/18/16 08:26; Start 12/14/16 at 08:00 Promethazine HCl/ Codeine (Phenergan With Codeine) 5 ml PRN Q6HRS PRN PO COUGH ; Start 12/14/16 at 06:00; Stop 12/14/16 at 06:16; Status DC Fentanyl Citrate (Fentanyl 2ml Vial) 50 mcg PRN Q2HR PRN IV PAIN; Start at 06:15 Acetaminophen 650 mg 650 mg PRN Q6HRS PRN PO FEVER; Start 12/14/16 at 06:15; Stop 12/16/16 at 09:50; Status DC Ceftriaxone Sodium/Sodium Chloride (Rocephin/Iv Sodium Chloride 0.9% 50ml) 50 ml @ 100 mls/hr Q24H IV Last administered on 12/18/16 07:23; Start 12/14/16 at 06:30 Promethazine HCl/ Codeine (Phenergan With Codeine) 5 ml TID PO Last administered on 12/18/16 09:43; Start 12/14/16 at 15:30 Potassium Chloride (Klor-Con) 20 meq 1X ONCE PO Last administered on 15:24; Start 12/15/16 at 08:45; Stop 12/15/16 at 08:46; Status DC Gadobutrol (Gadavist) 9 mmol 1X ONCE IV Last administered on 12/15/16t 14:00; Start 12/15/16 at 14:00; Stop 12/15/16 at 14:01; Status DC Potassium Chloride (Klor-Con) 20 meq 1X ONCE PO ; Start 12/15/16 at 15:30; Stop 12/15/16 at 15:31; Status DC Albuterol/ Ipratropium (Duoneb) 3 ml 1X ONCE NEB ; Start 12/16/16 at 01:30; Stop 12/16/16 at 01:30; Status DC Albuterol/ Ipratropium (Duoneb) 3 ml RTQID NEB ; Start 12/16/16 at 08:00; Stop 12/16/16 at 08:00; Status DC Throat Lozenges (Cepacol Sore Throat Lozenge) 1 damaris PRN Q2HRS PRN PO SORE THROAT; Start 12/16/16 at 03:00 Active Scripts Active Reported Aspirin 81 Mg Tab.chew 81 Mg PO DAILY Fenofibrate (Fenofibrate Nanocrystallized) 48 Mg Tablet 48 Mg PO DAILY Apriso (Mesalamine) 0.375 Gm Cap.er.24h 4 Cap PO DAILY Omeprazole 20 Mg Capsule.dr 20 Mg PO DAILY06 Azithromycin Tablet (Azithromycin) 250 Mg Tablet 250 Mg PO DAILY Prometh-Codein 6.25-10 mg/5 ml (Promethazine HCl/Codeine) 5 Ml Syrup 5 Ml PO TID Vitals/I & O Vital Sign - Last 24 Hours 12/17/16 12/17/16 12/17/16 12/17/16 11:00 11:56 15:00 16:47 Temp 97.1 98.2 97.1 98.2 Pulse 74 83 Resp 18 18 B/P 124/73 127/78 Pulse Ox 96 95 95 O2 Delivery Room Air Room Air Room Air Room Air 12/17/16 12/17/16 12/17/16 12/17/16 19:00 19:59 20:00 23:00 Temp 97.8 98.9 97.8 98.9 Pulse 92 79 Resp 18 18 B/P 133/79 127/77 Pulse Ox 97 96 96 O2 Delivery Room Air Room Air Room Air Room Air 12/18/16 12/18/16 12/18/16 12/18/16 03:00 07:00 07:40 08:27 Temp 97.0 97.0 Pulse 66 Resp 18 B/P 125/72 Pulse Ox 96 99 O2 Delivery Room Air Room Air Room Air Room Air Intake and Output 12/17/16 12/17/16 12/18/16 15:00 23:00 07:00 Intake Total 900 ml Balance 900 ml Problem List Problems Medical Problems: (1) Jaundice Status: Acute (2) Liver tumor Status: Acute Assessment 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 Interesting relatively normal LFT's a year ago. Plan of Care: Continue current Tx, Mgmt Plan of Care Note Await transfer to . JULIA DIALLO MD Dec 18, 2016 10:08
--- NOTE | 2016-12-18 10:25 | PDOC ---
PROGRESS NOTES Subjective Subjective no complaints Objective Objective Vital Signs Date Time Temp Pulse Resp B/P Pulse Ox O2 Delivery O2 Flow Rate FiO2 12/18/16 08:27 99 Room Air 12/18/16 07:00 97.0 66 18 125/72 97.0 Intake and Output 12/18/16 07:00 Intake Total 900 ml Balance 900 ml Intake Oral 900 ml # Voids 1 Physical Exam Abdomen: Normal bowel sounds, Soft Heart: Normal S1, Normal S2 Extremities: No clubbing General: Alert, Oriented X3 Lungs: Clear to auscultation MUSCULOSKELETAL: No deformity Neck: Supple Neuro: Normal speech Psych/Mental Status: Mental status NL Skin: No breakdown Diagnosis Problem List Problems Medical Problems: (1) Jaundice Status: Acute (2) Liver tumor Status: Acute Assessment Assessment IMP:Obstructive Jaundice 1. mass R lobe liver with intrahepatic duct dilation 2. R lower lobe pulmonary nodule 3. HTN 4. early Alzheimer 5. h/o irritable bowel disease 6. DM II non insulin controlled 7. metabolic syndrome X 8. h/o ulcerative colitis 9. moderate chronic PCL malnutrition 10. HH large 11. CKD III PLAN: accepted him for transfer . plans to transfer to for specialist treatment MRCP done 6 cm mass liver. possible cholangiocarcinoma. possible Lung mets lft still high.bilirubin 25 spoke with oncology spoke with GI. Problems: Plan Plan of Care Problems Medical Problems: (1) Jaundice Status: Acute (2) Liver tumor Status: Acute Comment Review of Relevant I have reviewed the following items isaac (where applicable) has been applied. Labs Laboratory Tests Test 12/18/16 04:45 White Blood Count 10.1x10^3/uL (4.0-11.0) Red Blood Count 4.22x10^6/uL (4.30-5.70) Hemoglobin 13.3g/dL (13.0-17.5) Hematocrit 37.9% (39.0-53.0) Mean Corpuscular Volume 90fL (79-100) Mean Corpuscular Hemoglobin 31pg (25-35) Mean Corpuscular Hemoglobin Concent 35g/dL (31-37) Red Cell Distribution Width 17.7% (11.5-14.5) Platelet Count 296x10^3/uL (140-400) Neutrophils (%) (Auto) 38% (31-73) Lymphocytes (%) (Auto) 50% (24-48) Monocytes (%) (Auto) 9% (0-9) Eosinophils (%) (Auto) 3% (0-3) Basophils (%) (Auto) 1% (0-3) Neutrophils # (Auto) 3.9x10^3uL (1.8-7.7) Lymphocytes # (Auto) 5.0x10^3/uL (1.0-4.8) Monocytes # (Auto) 0.9x10^3/uL (0.0-1.1) Eosinophils # (Auto) 0.3x10^3/uL (0.0-0.7) Basophils # (Auto) 0.1x10^3/uL (0.0-0.2) Segmented Neutrophils % 54% (35-66) Band Neutrophils % 4% (0-9) Lymphocytes % 28% (24-48) Monocytes % 7% (0-10) Eosinophils % 7% (0-5) Platelet Estimate Adequate (ADEQUATE) Target Cells Many Sodium Level 137mmol/L (136-145) Potassium Level 4.4mmol/L (3.5-5.1) Chloride Level 102mmol/L (98-107) Carbon Dioxide Level 25mmol/L (21-32) Anion Gap 10 (6-14) Blood Urea Nitrogen 13mg/dL (8-26) Creatinine 0.8mg/dL (0.7-1.3) Estimated GFR (Cockcroft-Gault) 95.8 BUN/Creatinine Ratio 16 (6-20) Glucose Level 93mg/dL (70-99) Calcium Level 9.0mg/dL (8.5-10.1) Total Bilirubin 24.2mg/dL (0.2-1.0) Aspartate Amino Transf (AST/SGOT) 67U/L (15-37) Alanine Aminotransferase (ALT/SGPT) 57U/L (16-63) Alkaline Phosphatase 216U/L (46-116) Total Protein 6.7g/dL (6.4-8.2) Albumin 2.3g/dL (3.4-5.0) Albumin/Globulin Ratio 0.5 (1.0-1.7) Vitals/I & O Vital Sign - Last 24 Hours 12/17/16 12/17/16 12/17/16 12/17/16 11:00 11:56 15:00 16:47 Temp 97.1 98.2 97.1 98.2 Pulse 74 83 Resp 18 18 B/P 124/73 127/78 Pulse Ox 96 95 95 O2 Delivery Room Air Room Air Room Air Room Air 12/17/16 12/17/16 12/17/16 12/17/16 19:00 19:59 20:00 23:00 Temp 97.8 98.9 97.8 98.9 Pulse 92 79 Resp 18 18 B/P 133/79 127/77 Pulse Ox 97 96 96 O2 Delivery Room Air Room Air Room Air Room Air 12/18/16 12/18/16 12/18/16 12/18/16 03:00 07:00 07:40 08:27 Temp 97.0 97.0 Pulse 66 Resp 18 B/P 125/72 Pulse Ox 96 99 O2 Delivery Room Air Room Air Room Air Room Air Intake and Output 12/17/16 12/17/16 12/18/16 15:00 23:00 07:00 Intake Total 900 ml Balance 900 ml KOFFI MOORE MD Dec 18, 2016 10:25
[2016-12-18 11:00] VITALS: BP 131/74
[2016-12-18 15:00] VITALS: BP 124/61
[2016-12-18 19:53] VITALS: BP 121/70
[2016-12-18 23:00] VITALS: BP 123/77
[2016-12-18 23:01] VITALS: BP 123/76
--- NOTE | 2016-12-20 14:22 | RESP ---
DATE OF SERVICE: 12/17/2016 ATTENDING PHYSICIAN: Dr. Hernandez. The patient underwent full pulmonary function testing, no bronchodilator was administered. The FEV1 to FVC ratio was 85%, FEV1 was normal, FVC was normal. Total lung capacity was normal. Diffusion capacity was normal. Residual volume was slightly elevated. IMPRESSION: No evidence of severe airflow limitation, no evidence of restrictive process. EVA NUNEZ MD DR: ANGELA/francois JOB#: [id number] / [id number]
--- NOTE | 2016-12-21 12:10 | PDOC ---
Provider Note Provider Note Discharge summary dictated. #[id number]. KOFFI MOORE MD Dec 21, 2016 12:09
--- NOTE | 2016-12-21 17:59 | DS ---
DATE OF DISCHARGE: 12/19/2016 REASON FOR ADMISSION TO THE HOSPITAL: Obstructive jaundice, abdominal pain. CONSULTATIONS: 1. Dr. Rodrigez. 2. Dr. Burris. 3. Dr. Hutchins. PROCEDURES DONE: 1. CT chest. 2. Ultrasound of the abdomen. 3. MRCP of the abdomen. 4. CT of abdomen and pelvis. COMPLICATIONS NOTED: None. HOSPITAL COURSE: The patient is a 71-year-old male, patient of Dr. Hernandez. Routine lab shows bilirubin is elevated to 20, sent to the Emergency Room, had a CT scan of the abdomen and pelvis which shows an intrahepatic biliary duct dilatation, hepatic mass at the clifford hepatis and small pulmonary nodules in the right lower lobe. The patient was seen by GI, had an MRCP, which shows hepatic right lobe mass which is 6 x 5 cm adjacent to the clifford hepatis causing obstructive jaundice and then nodules in the right lung, which is 1.4 cm, could be metastasis and questionable cholangiocarcinoma could be the diagnosis and the patient was transferred to [facility] for specialist care, needs stents in the in the biliary duct as well as liver biopsy and further treatment. FINAL DIAGNOSES: 1. Obstructive jaundice. 2. Liver mass causing obstructive jaundice, possible cholangiocarcinoma. 3. Possible metastasis to the lung . Patient was transferred to for further specialist care. KOFFI MOORE MD DR: ZEFERINO/francois JOB#: [id number] / [id number] AKUA Bone
== END 2016-12-18 23:05 | disposition short-term general hospital (02) | DRG 435 ==
LOC: ER 13:15 → 4 NORTH 18:15
PROVIDERS: ADMIT Internal Medicine; ATTEND Internal Medicine
DX: C22.0 Liver cell carcinoma (principal); K83.1 Obstruction of bile duct; E44.0 Moderate protein-calorie malnutrition; C22.1 Intrahepatic bile duct carcinoma; E78.00 Pure hypercholesterolemia, unspecified; E88.81 Metabolic syndrome and other insulin resistance; I12.9 Hypertensive chronic kidney disease with stage 1 through stage 4 chronic kidney disease, or unspecified chronic kidney disease; K21.9 Gastro-esophageal reflux disease without esophagitis; K58.9 Irritable bowel syndrome, unspecified; G30.0 Alzheimer's disease with early onset; F02.80 Dementia in other diseases classified elsewhere, unspecified severity, without behavioral disturbance, psychotic disturbance, mood disturbance, and anxiety; E11.22 Type 2 diabetes mellitus with diabetic chronic kidney disease; K81.9 Cholecystitis, unspecified; R16.0 Hepatomegaly, not elsewhere classified; J20.9 Acute bronchitis, unspecified; N18.3 Chronic kidney disease, stage 3 (moderate); Z87.891 Personal history of nicotine dependence; Z79.4 Long term (current) use of insulin; Z68.29 Body mass index [BMI] 29.0-29.9, adult
CPT/HCPCS: 36415; 71250; 74177; 74181; 74183; 76705; 80048; 80053; 80076; 81001; 82248; 82378; 83690; 83735; 85007; 85027; 85610; 85730; 86301; 94010; 94250; 94640; 94729; 94760; A9585; J0696; J7620; Q9967; 99285-25